=== PATIENT | female | born 1985 | race Caucasian/White ===

== ENCOUNTER 2018-08-12 12:39 | Emergency (ER) | payer MEDICAID, OTHER ==
[~2018-08-12] VITALS: Ht 160 cm; Wt 108.9 kg
--- OUTSIDE RECORDS SUMMARY | 2018-08-12 12:45 | XMS REPORT | Continuity of Care Document ---
Author Organization Unknown Address Unknown Allergies There is no data. Medications There is no data. Problems There is no data. Procedures There is no data. Results There is no data. Encounters ACCT No. Visit Date/Time Discharge Status Pt. Type Provider Facility Loc./Unit Complaint [id number] 07/20/2018 09:00:00 07/20/2018 23:59:59 [facility]
[2018-08-12 13:18] LABS: HEMATOCRIT 40 % (35-52); HEMOGLOBIN 13.3 G/DL (11.5-16.0); MEAN CORPUSCULAR HEMOGLOBIN 27 PG (25-34); MEAN CORPUSCULAR HGB CONC 33 G/DL (32-36); MEAN CORPUSCULAR VOLUME 81 FL (80-99); WHITE BLOOD COUNT 9.6 10^3/uL (4.3-11.0)
[2018-08-12 13:19] LABS: BASOPHILS # (AUTO) 0.1 10^3/uL (0.0-0.1); BASOPHILS % (AUTO) 1 % (0-10); EOSINOPHILS # (AUTO) 0.1 10^3/uL (0.0-0.3); EOSINOPHILS % (AUTO) 1 % (0-10); LYMPHOCYTES # (AUTO) 2.8 X 10^3 (1.0-4.0); LYMPHOCYTES % (AUTO) 30 % (12-44); MEAN PLATELET VOLUME 9.6 FL (7.4-10.4); MONOCYTES % (AUTO) 11 % (0-12); NEUTROPHILS # (AUTO) 5.5 X 10^3 (1.8-7.8); NEUTROPHILS % (AUTO) 57 % (42-75); PLATELET COUNT 373 10^3/uL (130-400); RED CELL DISTRIBUTION WIDTH 13.2 % (10.0-14.5)
[2018-08-12 13:35] LABS: ALANINE AMINOTRANSFERASE 9 U/L (0-55); ALBUMIN 4.2 GM/DL (3.2-4.5); ALKALINE PHOSPHATASE 97 U/L (40-136); BILIRUBIN,TOTAL 0.4 MG/DL (0.1-1.0); BUN/CREATININE RATIO 9; CALCIUM 8.5 MG/DL (8.5-10.1); CARBON DIOXIDE 22 MMOL/L (21-32); CHLORIDE 102 MMOL/L (98-107); CREATININE SERUM 0.86 MG/DL (0.60-1.30); GFR ESTIMATED > 60; GLUCOSE 110 MG/DL (70-105); LIPASE 34 U/L (8-78); POTASSIUM 3.4 MMOL/L (3.6-5.0); SODIUM 140 MMOL/L (135-145); TOTAL PROTEIN 7.2 GM/DL (6.4-8.2)
[2018-08-12] MEDS ORDERED: morphine INJ 10 MG/ML 1ML (SYR OR VIAL) IVP STA (13:49)
[2018-08-12] MEDS ORDERED: ONDANSETRON 4 MG/2 ML (SDV) Z0FRAN IVP ONE (14:00)
[2018-08-12] MEDS ORDERED: NS IV 1000 ML 1,000 ML IV SCH (14:15)
--- NOTE | 2018-08-12 14:40 | Diagnostic Imaging Report ---
PROCEDURE: CT abdomen and pelvis without contrast. TECHNIQUE: Multiple contiguous axial images were obtained through the abdomen and pelvis without the use of intravenous contrast. Auto Exposure Controls were utilized during the CT exam to meet ALARA standards for radiation dose reduction. INDICATION: Left flank pain, left groin pain as well as hematuria. COMPARISON: No prior studies are available for comparison. FINDINGS: The lung bases are clear. The liver is unremarkable. Gallbladder is surgically absent. No biliary ductal dilatation is seen. The pancreas and spleen are unremarkable. No adrenal mass is detected. Right kidney does contain a tiny nonobstructing calculus in a lower pole calyx. There are numerous tiny nonobstructing calculi in the left kidney. In addition, there is a 2-3 mm calculus in the proximal left ureter just beyond the UPJ. Minimal hydronephrosis on the left side is seen. Remainder of the ureters is unremarkable. No bladder calculi are seen. Aorta is nonaneurysmal. Small and large bowel loops are normal caliber and without evidence of obstruction. There is no ascites. The uterus and ovaries are unremarkable. IMPRESSION: Bilateral nonobstructing nephrolithiasis. In addition, there is a 2-3 mm calculus in the proximal left ureter producing minimal hydronephrosis. No other significant abnormality is seen. Dictated by: Dictated on workstation # [id number]
[2018-08-12 14:48] LABS: CLARITY,URINE CLEAR; COLOR,URINE ORANGE; GLUCOSE, URINE (UA) 1+ (NEGATIVE); KETONES,URINE TRACE (NEGATIVE); NITRITE,URINE POSITIVE (NEGATIVE); PROTEIN,URINE 2+ (NEGATIVE)
--- NOTE | 2018-08-12 14:48 | ED Abdominal Pain ---
General Chief Complaint: Abdominal/GI Problems Stated Complaint: BACK PAIN Nursing Triage Note: Brought in by EMS.Started having left sided flank pain yesterday that wrapped around into left lower abdomen. Pain is increased today, rated at 10/10 prior to 100 mcg fentanyl administration by EMS. Is currently rating pain at 2/10. Had bright red blood in urine yesterday. Also had "red swirls" of blood in vomit yesterday. Pt states has hx of bladder stones but not kidney stones and hx of stomach ulcers. Sepsis Screen: No Definite Risk Source of Information: Patient Exam Limitations: No Limitations History of Present Illness Date Seen by Provider: August 12, 2018 Time Seen by Provider: 13:30 Initial Comments Patient is a 32-year-old female who presents with left-sided flank pain concerning her earlier today. Pain was acute onset described as sharp, radiating to left pelvis. Associated with nausea and vomiting. Symptoms are similar to previous kidney stones. Patient REPORTS painless hematuria yesterday. Denies fever chills, sweats. Patient has irregular menstrual period due to control implant. No other acute symptoms or complaints. Timing/Duration: 4-6 Hours Severity/Quality: Severe, Sharp Location: Flank Radiation: LLQ Activities at Onset: None Associated Symptoms: Back Pain Allergies and Home Medications Allergies Coded Allergies: No Known Drug Allergies (Unverified , 08/12/18) Home Medications Cephalexin 500 Mg Capsule, 500 MG PO Q8H Prescribed by: GLADYS DOUGLAS on 08/12/18 1501 Hydrocodone/Acetaminophen 1 Each Tablet, 1 TAB PO Q6H PRN for PAIN-MODERATE Prescribed by: GLADYS DUOGLAS on 08/12/18 1501 Ondansetron 4 Mg Tab.rapdis, 4 MG PO Q6H Prescribed by: GLADYS DOUGLAS on 08/12/18 1501 Tamsulosin HCl 0.4 Mg Cap, 0.4 MG PO DAILY Prescribed by: GLADYS DOUGLAS on 08/12/18 1501 Patient Home Medication List Home Medication List Reviewed: Yes Review of Systems Review of Systems Constitutional: see HPI EENTM: See HPI Respiratory: See HPI Cardiovascular: See HPI Genitourinary: See HPI, Frequency, Flank Pain, Hematuria, Other Musculoskeletal: see HPI, back pain Skin: see HPI Psychiatric/Neurological: See HPI Endocrine: See HPI Hematologic/Lymphatic: See HPI Past Ubznmdr-Alpvnk-Dbzupl Hx Patient Social History Alcohol Use: Denies Use Recreational Drug Use: No Smoking Status: Never a Smoker 2nd Hand Smoke Exposure: No Recent Foreign Travel: No Contact w/Someone Who Travel: No Recent Infectious Disease Expo: No Recent Hopitalizations: No Physical Abuse: No Sexual Abuse: No Mistreated: No Fear: No Seasonal Allergies Seasonal Allergies: No Past Medical History Surgeries: Yes Gallbladder Respiratory: No Cardiac: No Neurological: No Genitourinary: Yes ("bladder stones") Gastrointestinal: Yes Ulcer Musculoskeletal: No Endocrine: Yes (PKU) HEENT: No Cancer: No Psychosocial: No Integumentary: No Physical Exam Vital Signs Vital Signs - First Documented 08/12/18 12:40 Temp 97.5 Pulse 74 Resp 22 B/P (MAP) 129/64 (85) Pulse Ox 95 Capillary Refill : Less Than 3 Seconds Height/Weight/BMI Height: 5'3.00" Weight: 240lbs. oz. [id number]; BMI Method:Stated General Appearance: no apparent distress HEENT: PERRL/EOMI, normal ENT inspection Neck: full range of motion Respiratory: lungs clear Cardiovascular: normal peripheral pulses, regular rate, rhythm Gastrointestinal: normal bowel sounds, non tender Back: CVA tenderness (L) Focused Exam Sepsis Stage: Ruled Out Progress/Results/Core Measures Results/Orders Lab Results Laboratory Tests Test 08/12/18 13:07 08/12/18 14:21 Range/Units White Blood Count 9.6 4.3-11.0 10^3/uL Red Blood Count 4.98 4.35-5.85 10^6/uL Hemoglobin 13.3 11.5-16.0 G/DL Hematocrit 40 35-52 % Mean Corpuscular Volume 81 80-99 FL Mean Corpuscular Hemoglobin 27 25-34 PG Mean Corpuscular Hemoglobin Concent 33 32-36 G/DL Red Cell Distribution Width 13.2 10.0-14.5 % Platelet Count 373 130-400 10^3/uL Mean Platelet Volume 9.6 7.4-10.4 FL Neutrophils (%) (Auto) 57 42-75 % Lymphocytes (%) (Auto) 30 12-44 % Monocytes (%) (Auto) 11 0-12 % Eosinophils (%) (Auto) 1 0-10 % Basophils (%) (Auto) 1 0-10 % Neutrophils # (Auto) 5.5 1.8-7.8 X 10^3 Lymphocytes # (Auto) 2.8 1.0-4.0 X 10^3 Monocytes # (Auto) 1.0 0.0-1.0 X 10^3 Eosinophils # (Auto) 0.1 0.0-0.3 10^3/uL Basophils # (Auto) 0.1 0.0-0.1 10^3/uL Sodium Level 140 135-145 MMOL/L Potassium Level 3.4 L 3.6-5.0 MMOL/L Chloride Level 102 98-107 MMOL/L Carbon Dioxide Level 22 21-32 MMOL/L Anion Gap 16 H 5-14 MMOL/L Blood Urea Nitrogen 8 7-18 MG/DL Creatinine 0.86 0.60-1.30 MG/DL Estimat Glomerular Filtration Rate > 60 BUN/Creatinine Ratio 9 Glucose Level 110 H 70-105 MG/DL Calcium Level 8.5 8.5-10.1 MG/DL Corrected Calcium 8.3 L 8.5-10.1 MG/DL Total Bilirubin 0.4 0.1-1.0 MG/DL Aspartate Amino Transf (AST/SGOT) 12 5-34 U/L Alanine Aminotransferase (ALT/SGPT) 9 0-55 U/L Alkaline Phosphatase 97 40-136 U/L Total Protein 7.2 6.4-8.2 GM/DL Albumin 4.2 3.2-4.5 GM/DL Lipase 34 8-78 U/L Serum Test, Qualitative NEGATIVE NEGATIVE Urine Color ORANGE Urine Clarity CLEAR Urine pH 5.0 5-9 Urine Specific [place] 1.020 1.016-1.022 Urine Protein 2+ H NEGATIVE Urine Glucose (UA) 1+ H NEGATIVE Urine Ketones TRACE H NEGATIVE Urine Nitrite POSITIVE H NEGATIVE Urine Bilirubin 2+ H NEGATIVE Urine Urobilinogen >=8.0 NORMAL MG/DL Urine Leukocyte Esterase 3+ H NEGATIVE Urine RBC (Auto) 3+ H NEGATIVE Urine RBC 50-100 H /HPF Urine WBC 25-50 H /HPF Urine Squamous Epithelial Cells 10-25 H /HPF Urine Crystals NONE /LPF Urine Bacteria FEW H /HPF Urine Casts NONE /LPF Urine Mucus NEGATIVE /LPF Urine Trichomonas /HPF Urine Culture Indicated YES My Orders Orders - GLADYS DOUGLAS DO Cbc With Automated Diff (08/12/18 12:47) Comprehensive Metabolic Panel (08/12/18 12:47) Lipase (08/12/18 12:47) Ua Culture If Indicated (08/12/18 12:47) Hcg,Qualitative Serum (08/12/18 12:47) Ondansetron Injection (Zofran Injectio (08/12/18 14:00) Morphine Injection (Morphine Injection (08/12/18 13:49) Ct Abdomen/Pelvis Wo (08/12/18 14:08) Ns Iv 1000 Ml (Sodium Chloride 0.9%) (08/12/18 14:15) Urine Culture (08/12/18 14:21) Ceftriaxone For Iv Use (Rocephin For I (08/12/18 15:00) Medications Given in ED Current Medications Medications Dose Ordered Sig/James Route Start Time Stop Time Status Last Admin Dose Admin Ondansetron HCl 4 mg ONCE ONCE IVP 08/12/18 14:00 08/12/18 14:01 DC 08/12/18 14:01 4 MG Vital Signs/I&O 08/12/18 12:40 Temp 97.5 Pulse 74 Resp 22 B/P (MAP) 129/64 (85) Pulse Ox 95 Blood Pressure Mean: 85 Departure Communication (Admissions) 2-3 mm left proximal ureteral stone with mild hydronephrosis with probable urinary tract infection. Patient is afebrile and nontoxic with normal white blood cell count. IV fluids, repeat pain medication and antibiotics given. Patient resting comfortably. Will treat supportively with PCP/urology follow-up. Return precautions reviewed. Impression Primary Impression: Acute left flank pain Additional Impressions: Kidney stone on left side Urinary tract infection Disposition: HOME, SELF-CARE Condition: Improved Departure-Patient Inst. Decision time for Depature: 14:58 Patient Instructions: Renal Colic, Urinary Tract Infections in Adults Add. Discharge Instructions: Please increase fluids and strain urine to assure passage of kidney stone. Take newly prescribed medications as directed and follow-up with your PCP in 2-3 days for repeat evaluation and consideration of urology referral. The meantime, if he developed new or worsening symptoms return to the emergency department. All discharge instructions reviewed with patient and/or family. Voiced unde rstanding. Scripts Tamsulosin HCl (Flomax) 0.4 Mg Cap 0.4 MG PO DAILY, #5 CAP Prov: GLADYS DOUGLAS DO 08/12/18 Ondansetron (Ondansetron Odt) 4 Mg Tab.rapdis 4 MG PO Q6H, #10 TAB Prov: GLADYS DOUGLAS DO 08/12/18 Hydrocodone/Acetaminophen ([place] 10-325 Tablet) 1 Each Tablet 1 TAB PO Q6H PRN for PAIN-MODERATE MDD 5 TABS for 7 Days, #20 TAB Prov: GLADYS DOUGLAS DO 08/12/18 Cephalexin (Keflex) 500 Mg Capsule 500 MG PO Q8H, #30 CAP Prov: GLADYS DOUGLAS DO 08/12/18 GLADYS DOUGLAS DO August 12, 2018 14:48
[2018-08-12 14:49] LABS: BACTERIA,URINE FEW /HPF; BILIRUBIN,URINE 2+ (NEGATIVE); LEUKOCYTE ESTERASE ,URINE 3+ (NEGATIVE); RBC,URINE 50-100 /HPF; UROBILINOGEN,URINE >=8.0 MG/DL (NORMAL); WBC,URINE 25-50 /HPF
[2018-08-12] MEDS ORDERED: cefTRIAXone FOR IV USE 1,000 MG in WATER (STERILE) FOR INJECTION 10 ML IV ONE (15:00)
[2018-08-12] MEDS ORDERED: TAMS0.4C98 PO (15:01)
[2018-08-12] MEDS ORDERED: CEPH-507 PO (15:01)
[2018-08-12] MEDS ORDERED: ONDA4TAB11 PO (15:01)
[2018-08-12] MEDS ORDERED: HYDR-4196 PO (15:01)
[2018-08-12 15:44] VITALS: BP 125/87
== END 2018-08-12 15:47 | disposition home or self-care (01) ==
LOC: ER FS 12:42
DX: N13.6 Pyonephrosis (principal)
CPT/HCPCS: 36415; 74176; 80053; 81000; 83690; 84703; 85025; 87088

== ENCOUNTER 2019-06-01 13:29 | Emergency (ER) | payer MEDICAID, OTHER ==
[~2019-06-01] VITALS: Ht 162.6 cm; Wt 108.9 kg
[~2019-06-01 13:29] MED LIST: CEPH-507 PO; HYDR-4196 PO; ONDA4TAB11 PO; TMSL.4C PO
[2019-06-01 14:30] LABS: BILIRUBIN,URINE NEGATIVE (NEGATIVE); CLARITY,URINE CLEAR; COLOR,URINE YELLOW; GLUCOSE, URINE (UA) NEGATIVE (NEGATIVE); KETONES,URINE TRACE (NEGATIVE); LEUKOCYTE ESTERASE ,URINE 1+ (NEGATIVE); NITRITE,URINE NEGATIVE (NEGATIVE); PH,URINE 6.5 (5-9); PROTEIN,URINE NEGATIVE (NEGATIVE)
[2019-06-01 14:39] LABS: BACTERIA,URINE TRACE /HPF; SQUAMOUS EPITHELIAL CELL,UR 0-2 /HPF
[2019-06-01] MEDS ORDERED: NS IV 1000 ML 1,000 ML IV SCH (15:04)
[2019-06-01] MEDS ORDERED: ONDANSETRON 4 MG/2 ML (SDV) Z0FRAN IVP ONE (15:15)
[2019-06-01 15:31] LABS: BASOPHILS % (AUTO) 0 % (0-10); EOSINOPHILS # (AUTO) 0.1 10^3/uL (0.0-0.3); EOSINOPHILS % (AUTO) 1 % (0-10); HEMATOCRIT 45 % (35-52); HEMOGLOBIN 14.9 G/DL (11.5-16.0); LYMPHOCYTES # (AUTO) 0.7 X 10^3 (1.0-4.0); LYMPHOCYTES % (AUTO) 8 % (12-44); MEAN CORPUSCULAR HEMOGLOBIN 26 PG (25-34); MEAN CORPUSCULAR HGB CONC 33 G/DL (32-36); MEAN CORPUSCULAR VOLUME 80 FL (80-99); MONOCYTES # (AUTO) 0.7 X 10^3 (0.0-1.0); MONOCYTES % (AUTO) 7 % (0-12); NEUTROPHILS # (AUTO) 7.8 X 10^3 (1.8-7.8); NEUTROPHILS % (AUTO) 84 % (42-75); PLATELET COUNT 340 10^3/uL (130-400); RED CELL DISTRIBUTION WIDTH 14.3 % (10.0-14.5); WHITE BLOOD COUNT 9.2 10^3/uL (4.3-11.0)
--- NOTE | 2019-06-01 15:35 | ED GI ---
General Chief Complaint: Abdominal/GI Problems Stated Complaint: ABD PAIN;N/D;DIZZINESS Nursing Triage Note: Pt amb to triage with c/o medial abd discomfort, nausea, diarrhea, dizziness, et chills. Pt reports onset of symptoms to be upon rise on this day. Pt reports to have experienced x5 epiodes of diarrhea throughout this day. Denies urinary symptoms. Reports hx bleeding ulcers. A&OX4. Sepsis Screen: No Definite Risk History of Present Illness Date Seen by Provider: Jun 01, 2019 Time Seen by Provider: 13:50 Initial Comments 33-year-old female presents for multiple episodes of diarrhea over the last 18 hours. She's had a history of GI ulcers in the past. She does take omeprazole daily. She has not taken anything for the diarrhea. Timing/Duration: 12-24 Hours Severity/Quality: Moderate Location: Generalized Abdomen Radiation: No Radiation Associated Symptoms: Fever/Chills, Fatigue, Nausea/Vomiting Allergies and Home Medications Allergies Coded Allergies: No Known Drug Allergies (Unverified , 08/12/18) Home Medications Cephalexin 500 Mg Capsule, 500 MG PO Q8H Prescribed by: GLADYS DOUGLAS on 08/12/18 1501 Diphenoxylate HCl/Atropine 1 Each Tablet, 1 EACH PO Q6H PRN for DIARRHEA Prescribed by: SIDNEY DOOLEY on 06/01/19 1646 Diphenoxylate HCl/Atropine 1 Each Tablet, 1 EACH PO Q6H PRN for DIARRHEA Prescribed by: SIDNEY DOOLEY on 06/01/19 1649 Hydrocodone/Acetaminophen 1 Each Tablet, 1 TAB PO Q6H PRN for PAIN-MODERATE Prescribed by: GLADYS DOUGLAS on 08/12/18 1501 Ondansetron 4 Mg Tab.rapdis, 4 MG PO Q6H Prescribed by: GLADYS DOUGLAS on 08/12/18 1501 Ondansetron 4 Mg Tab.rapdis, 4 MG PO Q6H PRN for NAUSEA/VOMITING-1ST LINE Prescribed by: SIDNEY DOOLEY on 06/01/19 1645 Tamsulosin HCl 0.4 Mg Cap, 0.4 MG PO DAILY Prescribed by: GLADYS DOUGLAS on 08/12/18 1501 Patient Home Medication List Home Medication List Reviewed: Yes Review of Systems Review of Systems Constitutional: see HPI, chills, malaise, weakness Respiratory: No Symptoms Reported, See HPI; Denies Cough Gastrointestinal: See HPI, Abdominal Pain, Diarrhea, Nausea, Poor Appetite, Poor Fluid Intake; Denies Vomiting All Other Systems Reviewed Negative Unless Noted: Yes Past Pufmchb-Mvifrq-Yjmrvh Hx Past Med/Social Hx: Reviewed Nursing Past Med/Soc Hx Patient Social History Alcohol Use: Denies Use Recreational Drug Use: No Smoking Status: Never a Smoker 2nd Hand Smoke Exposure: No Recent Foreign Travel: No Contact w/Someone Who Travel: No Recent Infectious Disease Expo: No Recent Hopitalizations: No Seasonal Allergies Seasonal Allergies: No Past Medical History Surgeries: Yes Gallbladder Respiratory: No Cardiac: No Neurological: No Genitourinary: Yes ("bladder stones") Gastrointestinal: Yes Ulcer Musculoskeletal: No Endocrine: Yes (PKU) HEENT: No Cancer: No Psychosocial: No Integumentary: No Physical Exam Vital Signs Vital Signs - First Documented 06/01/19 13:40 Temp 36.8 Pulse 93 Resp 18 B/P (MAP) 137/87 (104) Pulse Ox 100 O2 Delivery Room Air Capillary Refill : Less Than 3 Seconds Height/Weight/BMI Height: 5'3.00" Weight: 240lbs. oz. [id number]; 41.00 BMI Method:Stated General Appearance: WD/WN, no apparent distress HEENT: PERRL/EOMI, normal ENT inspection, TMs normal, pharynx normal, other (oral mucosa pink and moist) Neck: non-tender, full range of motion, supple, normal inspection Respiratory: chest non-tender, lungs clear, normal breath sounds Cardiovascular: normal peripheral pulses, regular rate, rhythm Gastrointestinal: normal bowel sounds, non tender, soft Extremities: normal range of motion, non-tender, normal inspection, normal capillary refill Neurologic/Psychiatric: no motor/sensory deficits, alert, normal mood/affect, oriented x 3 Skin: normal color, warm/dry Progress/Results/Core Measures Results/Orders Lab Results Laboratory Tests Test 06/01/19 14:20 06/01/19 15:10 Range/Units Urine Color YELLOW Urine Clarity CLEAR Urine pH 6.5 5-9 Urine Specific [place] 1.020 1.016-1.022 Urine Protein NEGATIVE NEGATIVE Urine Glucose (UA) NEGATIVE NEGATIVE Urine Ketones TRACE H NEGATIVE Urine Nitrite NEGATIVE NEGATIVE Urine Bilirubin NEGATIVE NEGATIVE Urine Urobilinogen 1.0 < = 1.0 MG/DL Urine Leukocyte Esterase 1+ H NEGATIVE Urine RBC (Auto) 3+ H NEGATIVE Urine RBC 2-5 H /HPF Urine WBC 2-5 /HPF Urine Squamous Epithelial Cells 0-2 /HPF Urine Crystals NONE /LPF Urine Bacteria TRACE /HPF Urine Casts NONE /LPF Urine Mucus NEGATIVE /LPF Urine Culture Indicated NO White Blood Count 9.2 4.3-11.0 10^3/uL Red Blood Count 5.64 4.35-5.85 10^6/uL Hemoglobin 14.9 11.5-16.0 G/DL Hematocrit 45 35-52 % Mean Corpuscular Volume 80 80-99 FL Mean Corpuscular Hemoglobin 26 25-34 PG Mean Corpuscular Hemoglobin Concent 33 32-36 G/DL Red Cell Distribution Width 14.3 10.0-14.5 % Platelet Count 340 130-400 10^3/uL Mean Platelet Volume 10.0 7.4-10.4 FL Neutrophils (%) (Auto) 84 H 42-75 % Lymphocytes (%) (Auto) 8 L 12-44 % Monocytes (%) (Auto) 7 0-12 % Eosinophils (%) (Auto) 1 0-10 % Basophils (%) (Auto) 0 0-10 % Neutrophils # (Auto) 7.8 1.8-7.8 X 10^3 Lymphocytes # (Auto) 0.7 L 1.0-4.0 X 10^3 Monocytes # (Auto) 0.7 0.0-1.0 X 10^3 Eosinophils # (Auto) 0.1 0.0-0.3 10^3/uL Basophils # (Auto) 0.0 0.0-0.1 10^3/uL Neutrophils % (Manual) 83 % Lymphocytes % (Manual) 10 % Monocytes % (Manual) 2 % Band Neutrophils 2 % Tear Drop Cells SLIGHT Blood Morphology Comment NORMAL Sodium Level 140 135-145 MMOL/L Potassium Level 3.6 3.6-5.0 MMOL/L Chloride Level 105 98-107 MMOL/L Carbon Dioxide Level 26 21-32 MMOL/L Anion Gap 9 5-14 MMOL/L Blood Urea Nitrogen 9 7-18 MG/DL Creatinine 0.92 0.60-1.30 MG/DL Estimat Glomerular Filtration Rate > 60 BUN/Creatinine Ratio 10 Glucose Level 92 70-105 MG/DL Calcium Level 9.0 8.5-10.1 MG/DL Corrected Calcium 8.6 8.5-10.1 MG/DL Total Bilirubin 0.7 0.1-1.0 MG/DL Aspartate Amino Transf (AST/SGOT) 15 5-34 U/L Alanine Aminotransferase (ALT/SGPT) 13 0-55 U/L Alkaline Phosphatase 116 40-136 U/L Total Protein 7.8 6.4-8.2 GM/DL Albumin 4.5 3.2-4.5 GM/DL My Orders Orders - SIDNEY DOOLEY Urine Bedside (06/01/19 13:38) Ua Culture If Indicated (06/01/19 13:38) Cbc With Automated Diff (06/01/19 15:04) Comprehensive Metabolic Panel (06/01/19 15:04) Ed Iv/Invasive Line Start (06/01/19 15:04) Ns Iv 1000 Ml (Sodium Chloride 0.9%) (06/01/19 15:04) Ondansetron Injection (Zofran Injectio (06/01/19 15:15) Manual Differential (06/01/19 15:10) Pantoprazole Injection (Protonix Injecti (06/01/19 16:00) Diphenoxylate/Atropine Tablet (Lomotil T (06/01/19 16:25) Medications Given in ED Current Medications Medications Dose Ordered Sig/James Route Start Time Stop Time Status Last Admin Dose Admin Ondansetron HCl 8 mg ONCE ONCE IVP 06/01/19 15:15 06/01/19 15:16 DC 06/01/19 15:24 8 MG Pantoprazole 40 mg ONCE ONCE IV 06/01/19 16:00 06/01/19 16:01 DC 06/01/19 16:07 40 MG Vital Signs/I&O 06/01/19 06/01/19 13:40 17:09 Temp 36.8 Pulse 93 72 Resp 18 18 B/P (MAP) 137/87 (104) 122/68 (104) Pulse Ox 100 100 O2 Delivery Room Air Blood Pressure Mean: 104 Progress Progress Note : Time: 13:50 Progress Note Patient seen and evaluated, will obtain labs and reevaluate. Zofran 8 mg IV for nausea. Normal saline 1 L per IV. 1445 labs essentially normal, . She has not been taking her Carafate or Prilosec, will give Protonix IV. Nausea has improved. Taking ice chips. 1530 IV infusing slowly, with slight for it to be infuse prior to disch arge.patient had another episode of diarrhea, Will give Lomotil 1600 patient reports no further diarrhea. Awaiting IV infusion. 1645 patient reports symptoms have improved. She's had no further diarrhea. IV has finished infusing. Discharge instructions and return precautions reviewed with her. Departure Impression Primary Impression: Diarrhea Qualified Codes: R19.7 - Diarrhea, unspecified Additional Impression: Abdominal pain Qualified Codes: R10.84 - Generalized abdominal pain Disposition: HOME, SELF-CARE Condition: Improved Departure-Patient Inst. Decision time for Depature: 16:45 Referrals: NO,LOCAL PHYSICIAN (PCP) [facility] Care Physician [facility] [place]ructions: Acute Abdomen (Belly Pain), Adult (DC), Diarrhea and Traveler's Diarrhea, Adult (DC) Add. Discharge Instructions: Clear liquid diet for the next 8 hours (16 oz every 2 hours, while awake) then bland diet as tolerated. Resume your omeprazole and Carafate. Use the Lomotil or diarrhea. Use the Zofran for nausea and vomiting. Follow-up with your primary care provider if symptoms are not improving or worsen. Return to the emergency department for new, urgent health care needs All discharge instructions reviewed with patient and/or family. Voiced under standing. Scripts Ondansetron (Ondansetron Odt) 4 Mg Tab.rapdis 4 MG PO Q6H PRN for NAUSEA/VOMITING-1ST LINE, #12 TAB 0 Refills Prov: SIDNEY DOOLEYP 06/01/19 Diphenoxylate HCl/Atropine (Lomotil 2.5-0.025 mg Tablet) 1 Each Tablet 1 EACH PO Q6H PRN for DIARRHEA, #10 TAB 0 Refills Prov: SIDNEY DOOLEY 06/01/19 SIDNEY DOOLEY Jun 01, 2019 15:34
[2019-06-01 15:42] LABS: ALANINE AMINOTRANSFERASE 13 U/L (0-55); ALBUMIN 4.5 GM/DL (3.2-4.5); ALKALINE PHOSPHATASE 116 U/L (40-136); BILIRUBIN,TOTAL 0.7 MG/DL (0.1-1.0); BUN/CREATININE RATIO 10; CARBON DIOXIDE 26 MMOL/L (21-32); CHLORIDE 105 MMOL/L (98-107); CREATININE SERUM 0.92 MG/DL (0.60-1.30); GFR ESTIMATED > 60; GLUCOSE 92 MG/DL (70-105); POTASSIUM 3.6 MMOL/L (3.6-5.0); SODIUM 140 MMOL/L (135-145); TOTAL PROTEIN 7.8 GM/DL (6.4-8.2)
[2019-06-01] MEDS ORDERED: PANTOPRAZOLE 40 MG (PROTONIX) VIAL IV ONE (16:00)
[2019-06-01] MEDS ORDERED: DIPHENOXYLATE/ATROPINE 2.5MG/0.025MG (LOMOTIL) TAB PO STA (16:25)
[2019-06-01 16:36] LABS: BAND NEUTROPHILS 2 %; LYMPHOCYTES % (MANUAL) 10 %; MONOCYTES % (MANUAL) 2 %; NEUTROPHILS % (MANUAL) 83 %
[2019-06-01 16:37] LABS: RBC MORPH NORMAL; TEAR DROP CELLS SLIGHT
[2019-06-01] MEDS ORDERED: ONDA4TAB11 PO (16:45)
[2019-06-01] MEDS ORDERED: DIPH1TAB PO ×2 (16:45→16:48)
[2019-06-01 17:09] VITALS: BP 122/68
[2019-06-02] MEDS ORDERED: SUCR1TAB36 PO (15:26)
[2019-06-02] MEDS ORDERED: OMEP20CA18 PO (15:26)
--- OUTSIDE RECORDS SUMMARY | 2019-06-03 12:31 | XMS REPORT ---
Author Author Mayra RODRIGUEZ Organization [facility] Address [address] [place] [address] Care Team Providers Care Transfer Station Attendant Name Role Phone JA RODRIGUEZ Unavailable PROBLEMS Type Condition ICD9-CM Code YXL00-OB Code Onset Dates Condition S tatus SNOMED Code Problem Migraine without aura and without status migrain osus, not intractable G43.009 Active 328562071 Problem PKU (phenylketonuria) E70.0 Active 4534541 Problem Peptic ulcer disease K27.9 Active 06296803 Problem Gastroesophageal reflux disease, esophagitis pre sence not specified K21.9 Active [id number] ALLERGIES No Information ENCOUNTERS Encounter Location Date Diagnosis [facility] [id number] [place] [id number] Sep, [address] [address] Aug, Encounter for Nexplanon removal Z30.46 [facility] [id number] [place] [phone] Aug, [facility] [address] [place] [address] Aug, Acute cystitis N30.00 ; Morbid obesity E 66.01 and Dysuria R30.0 [facility] [id number] [place] [id number] July, PKU (phenylketonuria) E70.[address] [address] July, Morbid obesity E66.01 ; Keloid scar of s kin L91.0 and Pain of left thumb M79.645 [facility] [address] [place] [address] Jun, Fungal infection of skin B36.9 and Morbi d obesity E66.[address] [address] Jun, [address] [address] Jun, Morbid obesity E66.01 and PKU (phenylket onuria) E70.[address] [address] May, [address] [address] [address] [facility] [id number] [address] [place] [phone] May, [address] [address] May, [address] [address] May, Morbid obesity E66.01 ; Chronic diarrhea K52.9 ; PKU (phenylketonuria) E70.0 ; Epigastric pain R10.13 and Migraine without aura and without status migrainosus, not intractable G43.009 [place] [id number] [facility] [id number] [address] [place] [phone] Apr, [place] [address] [address] [facility] [id number] [address] [place] [id number] Apr, [place] [address] [address] [facility] [id number] [address] [place] [phone] Mar, Peptic ulcer disease K27.9 ; Gastroesophageal reflux disease, esophagitis presence not specified K21.9 and BMI 40.0-44.9, adult Z68.41 IMMUNIZATIONS No Known Immunizations SOCIAL HISTORY Never Assessed REASON FOR VISIT Requests return call PLAN OF CARE VITAL SIGNS MEDICATIONS Unknown Medications RESULTS No Results PROCEDURES No Known procedures INSTRUCTIONS MEDICATIONS ADMINISTERED No Known Medications MEDICAL (GENERAL) HISTORY Type Description Date Medical History Stomach ulcers Medical History [facility] Medical History migraine headaches Surgical History cholecystectomy 2018 Surgical History EGD 2016 Hospitalization History cholecystectomy Hospitalization History stomach ulcers Hospitalization History bladder stones in
--- OUTSIDE RECORDS SUMMARY | 2019-06-03 12:32 | XMS REPORT | Continuity of Care Document ---
Author Organization Unknown Address Unknown Phone Unavailable Allergies Active Description Code Type Severity Reaction Onset Reported/Identified Relationship to Patient Clinical Status Yes No Known Drug Allergies [id number] Drug Allergy Unknown N/A 08/12/2018 Medications There is no data. Problems Date Dx Coded Attending Type Code Diagnosis Diagnosed By 08/12/2018 DOUGLAS DO, GLADYS Ot N13.6 PYONEPHROSIS 08/12/2018 DOUGLAS DO, GLADYS Ot R10.32 LEFT LOWER QUADRANT PAIN 08/16/2018 DOUGLAS DO, GLADYS Ot N13.6 PYONEPHROSIS 08/16/2018 DOUGLAS DO, GLADYS Ot R10.32 LEFT LOWER QUADRANT PAIN Procedures There is no data. Results Test Result Range Complete blood count (CBC) with automate d white blood cell (WBC) differential - 08/12/18 13:07 Blood leukocytes automated count (number/volume) 9.6 10*3/uL 4.3-11.0 Blood erythrocytes automated count (number/volume) 4.98 10*6/uL 4.35-5.85 Venous blood hemoglobin measurement (mass/volume) 13.3 g/dL 11.5-16.0 Blood hematocrit (volume fraction) 40 % 35-52 Automated erythrocyte mean corpuscular volume 81 [ foz_us] 80-99 Automated erythrocyte mean corpuscular h emoglobin (mass per erythrocyte) 27 pg 25-34 Automated erythrocyte mean corpuscular h emoglobin concentration measurement (mass/volume) 33 g/dL 32-36 Automated erythrocyte distribution width ratio 13. 2 % 10.0- 14.5 Automated blood platelet count (count/volume) 373 10*3/uL 130-400 Automated blood platelet mean volume measurement 9.6 [foz_us] 7.4-10.4 Automated blood neutrophils/100 leukocytes 57 % 42-75 Automated blood lymphocytes/100 leukocytes 30 % 12-44 Blood monocytes/100 leukocytes 11 % 0-12 Automated blood eosinophils/100 leukocytes 1 % 0-10 Automated blood basophils/100 leukocytes 1 % 0-10 Blood neutrophils automated count (number/volume) 5.5 10*3 1.8-7.8 Blood lymphocytes automated count (number/volume) 2.8 10*3 1.0-4.0 Blood monocytes automated count (number/volume) 1. 0 10*3 0.0-1.0 Automated eosinophil count 0.1 10*3/uL 0 .0-0.3 Automated blood basophil count (count/volume) 0.1 10*3/uL 0.0-0.1 Comprehensive metabolic panel - 08/12/18 13:07 Serum or plasma sodium measurement (moles/volume) 140 mmol/L 135-145 Serum or plasma potassium measurement (moles/volume) 3.4 mmol/L 3.6-5.0 Serum or plasma chloride measurement (moles/volume) 102 mmol/L 98-107 Carbon dioxide 22 mmol/L 21-32 Serum or plasma anion gap determination (moles/volume) 16 mmol/L 5-14 Serum or plasma urea nitrogen measurement (mass/volume ) 8 mg/dL 7-18 Serum or plasma creatinine measurement (mass/volume) 0.86 mg/dL 0.60-1.30 Serum or plasma urea nitrogen/creatinine mass ratio 9 NRG Serum or plasma creatinine measurement w ith calculation of estimated glomerular filtration rate > NRG Serum or plasma glucose measurement (mass/volume) 110 mg/dL 70-105 Serum or plasma calcium measurement (mass/volume) 8.5 mg/dL 8.5-10.1 Serum or plasma total bilirubin measurement (mass/volu me) 0.4 mg/dL 0.1-1.0 Serum or plasma alkaline phosphatase rosalie surement (enzymatic activity/volume) 97 U/L 40-136 Serum or plasma aspartate aminotransfera se measurement (enzymatic activity/volume) 12 U/L 5-34 Serum or plasma alanine aminotransferase measurement (enzymatic activity/volume) 9 U/L 0-55 Serum or plasma protein measurement (mass/volume) 7.2 g/dL 6.4-8.2 Serum or plasma albumin measurement (mass/volume) 4.2 g/dL 3.2-4.5 CALCIUM CORRECTED 8.3 mg/dL 8.5-10.1 Lipase - 08/12/18 13:07 Lipase 34 U/L 8-78 Serum or plasma choriogonadotropin (preg delta test) detection - 08/12/18 13:07 Serum or plasma choriogonadotropin ( test) de tection NEGATIVE NEGATIVE Complete urinalysis with reflex to cultu re - 08/12/18 14:21 Urine color determination ORANGE NRG Urine clarity determination CLEAR NR G Urine pH measurement by test strip 5.0 5-9 Specific gravity of urine by test strip 1.020 1.016-1.022 Urine protein assay by test strip, semi-quantitative 2+ NEGATIVE Urine glucose detection by automated test strip 1+ NEGATIVE Erythrocytes detection in urine sediment by light micr oscopy 3+ NEGATIVE Urine ketones detection by automated test strip TR ALVARO NEGATIVE Urine nitrite detection by test strip POSITIVE NEGATIVE Urine total bilirubin detection by test strip 2+ NEGATIVE Urine urobilinogen measurement by automated test strip (mass/volume) >= mg/dL NORMAL Urine leukocyte esterase detection by dipstick 3+ NEGATIVE Automated urine sediment erythrocyte cou nt by microscopy (number/high power field) [HPF] NRG Automated urine sediment leukocyte count by microscopy (number/high power field) [HPF] NRG Bacteria detection in urine sediment by light microsco py FEW NRG Squamous epithelial cells detection in u rine sediment by light microscopy 10-25 NRG Crystals detection in urine sediment by light microsco py NONE NRG Casts detection in urine sediment by light microscopy NONE NRG Mucus detection in urine sediment by light microscopy NEGATIVE NRG Complete urinalysis with reflex to culture YES NRG Bacterial urine culture - 08/12/18 14:21 Bacterial urine culture 3 OR MORE NRG COLONY COUNT 60,000 cfu/ml NRG FTX;REPORTABLE GRAM POSITIVE ISOLATES; SUGGESTING NRG FREE TEXT ENTRY 2 PROBABLE COLLECTION CONTAMINATIO N WITH NRG FREE TEXT ENTRY 3 SKIN SUBHASH. NO SUSCEPTIBILITY PE RFORMED. NR CULTURE, URINE - 08/20/18 00:00 CULTURE, URINE, ROUTINE SEE NOTE NR SUREPATH PAP RFX HPV mRNA E6/E7 - 11:47 CLINICAL INFORMATION: NRG LMP: NRG PREV. PAP: NRG PREV. 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: NRG GENERAL CATEGORIZATION: NRG COMMENT: NR PATHOLOGIST: NR COMMENT NR CULTURE, URINE - 05/18/19 15:00 CULTURE, URINE, ROUTINE SEE NOTE NR CBC - 05/22/19 13:22 WHITE BLOOD CELL COUNT 7.0 Thousand/uL 3 .8-10.8 RED BLOOD CELL COUNT 5.18 Million/uL 3.8 0-5.10 HEMOGLOBIN 13.9 g/dL 11.7-15.5 HEMATOCRIT 43.1 % 35.0-45.0 MCV 83.2 fL 80.0-100.0 MCH 26.8 pg 27.0-33.0 MCHC 32.3 g/dL 32.0-36.0 RDW 13.2 % 11.0-15.0 PLATELET COUNT 352 Thousand/uL 140-400 MPV 10.5 fL 7.5-12.5 ABSOLUTE NEUTROPHILS 4634 cells/uL 1500- 7800 ABSOLUTE LYMPHOCYTES 1589 cells/uL 850-3 900 ABSOLUTE MONOCYTES 567 cells/uL 200-950 ABSOLUTE EOSINOPHILS 133 cells/uL 15-500 ABSOLUTE BASOPHILS 77 cells/uL 0-200 NEUTROPHILS 66.2 % NRG LYMPHOCYTES 22.7 % NRG MONOCYTES 8.1 % NRG EOSINOPHILS 1.9 % NRG BASOPHILS 1.1 % NRG Complete urinalysis with reflex to cultu re - 06/01/19 14:20 Urine color determination YELLOW NRG Urine clarity determination CLEAR NR G Urine pH measurement by test strip 6.5 5-9 Specific gravity of urine by test strip 1.020 1.016-1.022 Urine protein assay by test strip, semi-quantitative NEGATIVE NEGATIVE Urine glucose detection by automated test strip NE GATIVE NEGATIVE Erythrocytes detection in urine sediment by light micr oscopy 3+ NEGATIVE Urine ketones detection by automated test strip TR ALVARO NEGATIVE Urine nitrite detection by test strip NEGATIVE NEGATIVE Urine total bilirubin detection by test strip NEGA TIVE NEGATIVE Urine urobilinogen measurement by automated test strip (mass/volume) 1.0 mg/dL < = 1.0 Urine leukocyte esterase detection by dipstick 1+ NEGATIVE Automated urine sediment erythrocyte cou nt by microscopy (number/high power field) [HPF] NRG Automated urine sediment leukocyte count by microscopy (number/high power field) [HPF] NRG Bacteria detection in urine sediment by light microsco py TRACE NRG Squamous epithelial cells detection in u rine sediment by light microscopy 0-2 NRG Crystals detection in urine sediment by light microsco py NONE NRG Casts detection in urine sediment by light microscopy NONE NRG Mucus detection in urine sediment by light microscopy NEGATIVE NRG Complete urinalysis with reflex to culture NO NRG Complete blood count (CBC) with automate d white blood cell (WBC) differential - 06/01/19 15:10 Blood leukocytes automated count (number/volume) 9.2 10*3/uL 4.3-11.0 Blood erythrocytes automated count (number/volume) 5.64 10*6/uL 4.35-5.85 Venous blood hemoglobin measurement (mass/volume) 14.9 g/dL 11.5-16.0 Blood hematocrit (volume fraction) 45 % 35-52 Automated erythrocyte mean corpuscular volume 80 [ foz_us] 80-99 Automated erythrocyte mean corpuscular h emoglobin (mass per erythrocyte) 26 pg 25-34 Automated erythrocyte mean corpuscular h emoglobin concentration measurement (mass/volume) 33 g/dL 32-36 Automated erythrocyte distribution width ratio 14. 3 % 10.0- 14.5 Automated blood platelet count (count/volume) 340 10*3/uL 130-400 Automated blood platelet mean volume measurement 10.0 [foz_us] 7.4-10.4 Automated blood neutrophils/100 leukocytes 84 % 42-75 Automated blood lymphocytes/100 leukocytes 8 % 12-44 Blood monocytes/100 leukocytes 7 % 0-12 Automated blood eosinophils/100 leukocytes 1 % 0-10 Automated blood basophils/100 leukocytes 0 % 0-10 Blood neutrophils automated count (number/volume) 7.8 10*3 1.8-7.8 Blood lymphocytes automated count (number/volume) 0.7 10*3 1.0-4.0 Blood monocytes automated count (number/volume) 0. 7 10*3 0.0-1.0 Automated eosinophil count 0.1 10*3/uL 0 .0-0.3 Automated blood basophil count (count/volume) 0.0 10*3/uL 0.0-0.1 Comprehensive metabolic panel - 06/01/19 15:10 Serum or plasma sodium measurement (moles/volume) 140 mmol/L 135-145 Serum or plasma potassium measurement (moles/volume) 3.6 mmol/L 3.6-5.0 Serum or plasma chloride measurement (moles/volume) 105 mmol/L 98-107 Carbon dioxide 26 mmol/L 21-32 Serum or plasma anion gap determination (moles/volume) 9 mmol/L 5-14 Serum or plasma urea nitrogen measurement (mass/volume ) 9 mg/dL 7-18 Serum or plasma creatinine measurement (mass/volume) 0.92 mg/dL 0.60-1.30 Serum or plasma urea nitrogen/creatinine mass ratio 10 NRG Serum or plasma creatinine measurement w ith calculation of estimated glomerular filtration rate > NRG Serum or plasma glucose measurement (mass/volume) 92 mg/dL 70-105 Serum or plasma calcium measurement (mass/volume) 9.0 mg/dL 8.5-10.1 Serum or plasma total bilirubin measurement (mass/volu me) 0.7 mg/dL 0.1-1.0 Serum or plasma alkaline phosphatase rosalie surement (enzymatic activity/volume) 116 U/L 40-136 Serum or plasma aspartate aminotransfera se measurement (enzymatic activity/volume) 15 U/L 5-34 Serum or plasma alanine aminotransferase measurement (enzymatic activity/volume) 13 U/L 0-55 Serum or plasma protein measurement (mass/volume) 7.8 g/dL 6.4-8.2 Serum or plasma albumin measurement (mass/volume) 4.5 g/dL 3.2-4.5 CALCIUM CORRECTED 8.6 mg/dL 8.5-10.1 Manual absolute plasma cell count - 05/20 05/11 15:10 Blood monocytes/100 leukocytes 2 % NRG Manual blood segmented neutrophils/100 leukocytes 83 % NRG Blood band neutrophils/100 leukocytes 2 % NRG Manual blood lymphocytes/100 leukocytes 10 % NRG Blood erythrocyte morphology finding identification NORMAL NRG Blood dacrocytes detection by light microscopy I [facility] NR Complete blood count (CBC) with automate d white blood cell (WBC) differential - 06/02/19 14:40 Blood leukocytes automated count (number/volume) 5.9 10*3/uL 4.3-11.0 Blood erythrocytes automated count (number/volume) 5.56 10*6/uL 4.35-5.85 Venous blood hemoglobin measurement (mass/volume) 14.7 g/dL 11.5-16.0 Blood hematocrit (volume fraction) 44 % 35-52 Automated erythrocyte mean corpuscular volume 80 [ foz_us] 80-99 Automated erythrocyte mean corpuscular h emoglobin (mass per erythrocyte) 26 pg 25-34 Automated erythrocyte mean corpuscular h emoglobin concentration measurement (mass/volume) 33 g/dL 32-36 Automated erythrocyte distribution width ratio 14. 3 % 10.0- 14.5 Automated blood platelet count (count/volume) 302 10*3/uL 130-400 Automated blood platelet mean volume measurement 9.9 [foz_us] 7.4-10.4 Automated blood neutrophils/100 leukocytes 72 % 42-75 Automated blood lymphocytes/100 leukocytes 16 % 12-44 Blood monocytes/100 leukocytes 11 % 0-12 Automated blood eosinophils/100 leukocytes 0 % 0-10 Automated blood basophils/100 leukocytes 1 % 0-10 Blood neutrophils automated count (number/volume) 4.3 10*3 1.8-7.8 Blood lymphocytes automated count (number/volume) 0.9 10*3 1.0-4.0 Blood monocytes automated count (number/volume) 0. 7 10*3 0.0-1.0 Automated eosinophil count 0.0 10*3/uL 0 .0-0.3 Automated blood basophil count (count/volume) 0.0 10*3/uL 0.0-0.1 Serum or plasma choriogonadotropin (preg delta test) detection - 06/02/19 14:40 Serum or plasma choriogonadotropin ( test) de tection NEGATIVE NEGATIVE Comprehensive metabolic panel - 06/02/19 14:40 Serum or plasma sodium measurement (moles/volume) 139 mmol/L 135-145 Serum or plasma potassium measurement (moles/volume) 3.5 mmol/L 3.6-5.0 Serum or plasma chloride measurement (moles/volume) 105 mmol/L 98-107 Carbon dioxide 20 mmol/L 21-32 Serum or plasma anion gap determination (moles/volume) 14 mmol/L 5-14 Serum or plasma urea nitrogen measurement (mass/volume ) 6 mg/dL 7-18 Serum or plasma creatinine measurement (mass/volume) 0.94 mg/dL 0.60-1.30 Serum or plasma urea nitrogen/creatinine mass ratio 6 NRG Serum or plasma creatinine measurement w ith calculation of estimated glomerular filtration rate > NRG Serum or plasma glucose measurement (mass/volume) 95 mg/dL 70-105 Serum or plasma calcium measurement (mass/volume) 9.0 mg/dL 8.5-10.1 Serum or plasma total bilirubin measurement (mass/volu me) 0.7 mg/dL 0.1-1.0 Serum or plasma alkaline phosphatase rosalie surement (enzymatic activity/volume) 115 U/L 40-136 Serum or plasma aspartate aminotransfera se measurement (enzymatic activity/volume) 16 U/L 5-34 Serum or plasma alanine aminotransferase measurement (enzymatic activity/volume) 12 U/L 0-55 Serum or plasma protein measurement (mass/volume) 7.7 g/dL 6.4-8.2 Serum or plasma albumin measurement (mass/volume) 4.4 g/dL 3.2-4.5 CALCIUM CORRECTED 8.7 mg/dL 8.5-10.1 Lipase - 06/02/19 14:40 Lipase 32 U/L 8-78 Influenza virus A and B antigen detectio n - 06/02/19 14:44 FLU RESULT NEGATIVE FOR INFLUENZA A AND B ANTIGENS BY IA [facility] Urine drug screening test - 06/02/19 15: 30 Urine phencyclidine detection by screening method NEGATIVE NEGATIVE Urine benzodiazepines detection by screening method NEGATIVE NEGATIVE Urine cocaine detection NEGATIVE NEGATI VE Urine amphetamines detection by screening method N EGATIVE NEGATIVE Urine methamphetamine detection by screening method NEGATIVE NEGATIVE Urine cannabinoids detection by screening method N EGATIVE NEGATIVE Urine opiates detection by screening method NEGATI VE NEGATIVE Urine barbiturates detection NEGATIVE N EGATIVE Screening urine tricyclic antidepressants detection NEGATIVE NEGATIVE Urine methadone detection by screening method NEGA TIVE NEGATIVE Urine oxycodone detection NEGATIVE NEGA TIVE Urine propoxyphene detection NEGATIVE N EGATIVE Encounters ACCT No. Visit Date/Time Discharge Status Pt. Type Provider Facility Loc./Unit Complaint [id number] 02/02/2019 08:20:00 02/02/2019 23:59: 59 [facility] Outpatient [facility] [id number] 05/22/2019 11:00:00 Document Registration [id number] 05/18/2019 14:15:00 Document Registration [id number] 04/13/2019 15:45:00 Document Registration [id number] 08/20/2018 09:40:00 Document Registration [id number] 06/01/2019 13:31:00 020 17:09:00 DIS Emergency SIDNEY DOOLEY Via [facility] ABD PAIN;N/D;DIZZINESS [id number] 08/12/2018 12:42:00 019 15:47:00 DIS Emergency GLADYS DOUGLAS DO Via [facility] FS BACK PAIN [id number] 06/02/2019 14:28:[address] Emergency CLINTON DONALD APRN [facility] BODY ACHES;SOA;CHEST PAIN
== END 2019-06-01 17:09 | disposition home or self-care (01) ==
LOC: EDUNIT# 13:29 → ER 13:31
DX: R19.7 Diarrhea, unspecified (principal); R10.84 Generalized abdominal pain
CPT/HCPCS: 36415; 80053; 81000; 84703; 85007; 85027

== ENCOUNTER 2019-06-02 14:27 | Emergency (ER) | payer OTHER ==
[~2019-06-02] VITALS: Ht 160 cm; Wt 108.0 kg
[~2019-06-02 14:27] MED LIST changes: +DIPH1TAB PO
--- NOTE | 2019-06-02 14:37 | ED Chest Pain ---
General Chief Complaint: General Problems/Pain Stated Complaint: BODY ACHES;SOA;CHEST PAIN Source: patient Exam Limitations: no limitations History of Present Illness Date Seen by Provider: Jun 02, 2019 Time Seen by Provider: 14:36 Initial Comments To ER with diffuse body aches, shortness of breath and ventral chest pain from the epigastric region to the mid aspect of the upper chest. Pain is worsened by movement, standing upright and breathing. She was seen here last night for persistent vomiting. She denies any hematemesis. She takes omeprazole and sucralfate for peptic ulcers diagnosed by endoscopy most recently in 2011. Timing/Duration: changing over time Severity/Quality: moderate Location: central Radiation: no radiation Prior CP/Workup: no prior chest pain ASA po RFP WRITER: No NTG SL RFP WRITER: No Associated Symptoms: shortness of breath Allergies and Home Medications Allergies Coded Allergies: No Known Drug Allergies (Unverified , 08/12/18) Home Medications Cephalexin 500 Mg Capsule, 500 MG PO Q8H Prescribed by: GLADYS DOUGLAS on 08/12/18 1501 Diphenoxylate HCl/Atropine 1 Each Tablet, 1 EACH PO Q6H PRN for DIARRHEA Prescribed by: SIDNEY DOOLEY on 06/01/19 1646 Hydrocodone/Acetaminophen 1 Each Tablet, 1 TAB PO Q6H PRN for PAIN-MODERATE Prescribed by: GLADYS DOUGLAS on 08/12/18 1501 Omeprazole 20 Mg Capsule.dr, 20 MG PO DAILY, (Reported) Ondansetron 4 Mg Tab.rapdis, 4 MG PO Q6H Prescribed by: GLADYS DOUGLAS on 08/12/18 1501 Ondansetron 4 Mg Tab.rapdis, 4 MG PO Q6H PRN for NAUSEA/VOMITING-1ST LINE Prescribed by: SIDNEY DOOLEY on 06/01/19 1645 Sucralfate 1 Gm Tablet, 1 GM PO AC, (Reported) Tamsulosin HCl 0.4 Mg Cap, 0.4 MG PO DAILY Prescribed by: GLADYS DOUGLAS on 08/12/18 1501 Patient Home Medication List Home Medication List Reviewed: Yes Review of Systems Review of Systems Constitutional: see HPI; No chills EENTM: No Symptoms Reported Respiratory: See HPI; Denies Cough; Shortness of Air Cardiovascular: See HPI, Chest Pain Gastrointestinal: No Symptoms Reported Genitourinary: No Symptoms Reported Musculoskeletal: no symptoms reported Skin: no symptoms reported Psychiatric/Neurological: No Symptoms Reported Endocrine: No Symptoms Reported Past Laecdvs-Pbjgft-Ndbxsj Hx Patient Social History 2nd Hand Smoke Exposure: No Recent Foreign Travel: No Contact w/Someone Who Travel: No Recent Hopitalizations: No Seasonal Allergies Seasonal Allergies: No Past Medical History Surgeries: Yes Gallbladder Respiratory: No Cardiac: No Neurological: No Genitourinary: Yes ("bladder stones") Gastrointestinal: Yes Ulcer Musculoskeletal: No Endocrine: Yes (PKU) HEENT: No Cancer: No Psychosocial: No Integumentary: No Physical Exam Vital Signs Vital Signs - First Documented 06/02/19 14:27 Temp 36.0 Pulse 103 Resp 22 B/P (MAP) 178/125 (142) Pulse Ox 100 O2 Delivery Room Air Capillary Refill : Height, Weight, BMI Height: 5'3.00" Weight: 240lbs. oz. 108.804325te; 41.00 BMI Method:Stated General Appearance: No Apparent Distress, Anxious HEENT: PERRL/EOMI, TMs Normal Neck: Full Range of Motion, Normal Inspection Respiratory: Normal Breath Sounds, No Accessory Muscle Use, No Respiratory Distress Cardiovascular: Normal Peripheral Pulses, Tachycardia Gastrointestinal: Non Tender, Soft Extremity: Normal Capillary Refill, Normal Inspection Neurologic/Psychiatric: Alert, Oriented x3 Skin: Normal Color, Warm/Dry Progress/Results/Core Measures Results/Orders Lab Results Laboratory Tests Test 06/02/19 14:40 06/02/19 15:30 Range/Units White Blood Count 5.9 4.3-11.0 10^3/uL Red Blood Count 5.56 4.35-5.85 10^6/uL Hemoglobin 14.7 11.5-16.0 G/DL Hematocrit 44 35-52 % Mean Corpuscular Volume 80 80-99 FL Mean Corpuscular Hemoglobin 26 25-34 PG Mean Corpuscular Hemoglobin Concent 33 32-36 G/DL Red Cell Distribution Width 14.3 10.0-14.5 % Platelet Count 302 130-400 10^3/uL Mean Platelet Volume 9.9 7.4-10.4 FL Neutrophils (%) (Auto) 72 42-75 % Lymphocytes (%) (Auto) 16 12-44 % Monocytes (%) (Auto) 11 0-12 % Eosinophils (%) (Auto) 0 0-10 % Basophils (%) (Auto) 1 0-10 % Neutrophils # (Auto) 4.3 1.8-7.8 X 10^3 Lymphocytes # (Auto) 0.9 L 1.0-4.0 X 10^3 Monocytes # (Auto) 0.7 0.0-1.0 X 10^3 Eosinophils # (Auto) 0.0 0.0-0.3 10^3/uL Basophils # (Auto) 0.0 0.0-0.1 10^3/uL Sodium Level 139 135-145 MMOL/L Potassium Level 3.5 L 3.6-5.0 MMOL/L Chloride Level 105 98-107 MMOL/L Carbon Dioxide Level 20 L 21-32 MMOL/L Anion Gap 14 5-14 MMOL/L Blood Urea Nitrogen 6 L 7-18 MG/DL Creatinine 0.94 0.60-1.30 MG/DL Estimat Glomerular Filtration Rate > 60 BUN/Creatinine Ratio 6 Glucose Level 95 70-105 MG/DL Calcium Level 9.0 8.5-10.1 MG/DL Corrected Calcium 8.7 8.5-10.1 MG/DL Total Bilirubin 0.7 0.1-1.0 MG/DL Aspartate Amino Transf (AST/SGOT) 16 5-34 U/L Alanine Aminotransferase (ALT/SGPT) 12 0-55 U/L Alkaline Phosphatase 115 40-136 U/L Total Protein 7.7 6.4-8.2 GM/DL Albumin 4.4 3.2-4.5 GM/DL Lipase 32 8-78 U/L Serum Test, Qualitative NEGATIVE NEGATIVE Micro Results Microbiology 06/02/19 Influenza Types A,B Antigen (SOPHY) - Final, Complete My Orders Orders - [facility] [employer] [employer] Cbc With Automated Diff (06/02/19 14:34) Comprehensive Metabolic Panel (06/02/19 14:34) Lipase (06/02/19 14:34) Ed Iv/Invasive Line Start (06/02/19 14:34) Antacid Suspension (Mylanta Suspension (06/02/19 14:45) Lidocaine 2% Viscous 15 Ml (Xylocaine Vi (06/02/19 14:45) Lorazepam Injection (Ativan Injection) (06/02/19 14:45) Ct Angio Chest W (06/02/19 14:37) Drug Screen Stat (Urine) (06/02/19 14:38) Hcg,Qualitative Serum (06/02/19 14:38) Iohexol Injection (Omnipaque 350 Mg/Ml 1 (06/02/19 14:45) Received Contrast (Hold Metformin- Contr (06/02/19 14:45) Sodium Chloride Flush (Catheter Flush Sy (06/02/19 14:45) Ns (Ivpb) (Sodium Chloride 0.9% Ivpb Bag (06/02/19 14:45) Ekg Tracing (06/02/19 15:33) Ketorolac Injection (Toradol Injection) (06/02/19 15:45) Medications Given in ED Current Medications Medications Dose Ordered Sig/James Route Start Time Stop Time Status Last Admin Dose Admin Al Hydrox/Mg Hydrox/Simethicone 30 ml ONCE ONCE PO 06/02/19 14:45 06/02/19 14:46 DC 06/02/19 14:40 30 ML Iohexol 100 ml ONCE ONCE IV 06/02/19 14:45 06/02/19 14:46 DC 06/02/19 15:13 84 ML Ketorolac Tromethamine 15 mg ONCE ONCE IVP 06/02/19 15:45 06/02/19 15:46 DC 06/02/19 15:39 15 MG Lidocaine HCl 15 ml ONCE ONCE PO 06/02/19 14:45 06/02/19 14:46 DC 06/02/19 14:40 15 ML Lorazepam 0.5 mg ONCE PRN IVP 06/02/19 14:45 06/02/19 14:40 0.5 MG Sodium Chloride 10 ml NEEDED PRN IV 06/02/19 14:45 06/02/19 15:13 10 ML Sodium Chloride 100 ml ONCE ONCE IV 06/02/19 14:45 06/02/19 14:46 DC 06/02/19 15:13 80 ML Vital Signs/I&O 06/02/19 14:27 Temp 36.0 Pulse 103 Resp 22 B/P (MAP) 178/125 (142) Pulse Ox 100 O2 Delivery Room Air Progress Progress Note : Progress Note NAME: SHREYA GONZALES MED REC#: [id number] PT STATUS: REG ER : 1985 PHYSICIAN: [employer] ADMIT DATE: 06/02/19/ER Draft Date of Exam:06/02/19 CT ANGIO CHEST W PROCEDURE: CT angiography of the chest with contrast. TECHNIQUE: Multiple contiguous axial images were obtained through the chest after uneventful bolus administration of intravenous contrast. 3D reconstructed CTA MIP acquisitions were also performed. Auto Exposure Controls were utilized during the CT exam to meet ALARA standards for radiation dose reduction. INDICATION: Chest pain, cough and shortness of air. COMPARISON: No prior studies are available for comparison. FINDINGS: Evaluation of pulmonary arterial system is without thromboembolism. No definite filling defects are seen within central, lobar or segmental branches. The thoracic aorta appears to be normal caliber. No dissection is identified. There is no pericardial or pleural fluid detected. No axillary lymphadenopathy is detected. No definite mediastinal or hilar lymphadenopathy is detected. No pulmonary infiltrates, nodules or masses are seen. Upper abdomen is unremarkable. The bony structures are nonacute. IMPRESSION: 1. No evidence of pulmonary embolism or thoracic aortic dissection. No acute features identified. Dictated on workstation # [id number] Dict: 06/02/19 1518 Trans: 06/02/19 1523 [id number] Interpreted by: EMILY CRAIG MD Electronically signed by: Departure Impression Primary Impression: Chest pain Qualified Codes: R07.9 - Chest pain, unspecified Disposition: 01 HOME, SELF-CARE Condition: Stable Departure-Patient Inst. Decision time for Depature: 16:53 Referrals: [facility] (PCP) Primary Care Physician SHERMAN CHAVEZ APRN (Family) Primary Care Physician Patient Instructions: Chest Pain Add. Discharge Instructions: 1. Follow-up with your doctor next week 2. Return to ER for any concerns 3. All discharge instructions reviewed with patient and/or family. Voiced understanding. CLINTON DONALD APRN Jun 02, 2019 14:37
[2019-06-02 14:45] LABS: BASOPHILS % (AUTO) 1 % (0-10); EOSINOPHILS % (AUTO) 0 % (0-10); HEMATOCRIT 44 % (35-52); HEMOGLOBIN 14.7 G/DL (11.5-16.0); LYMPHOCYTES # (AUTO) 0.9 X 10^3 (1.0-4.0); LYMPHOCYTES % (AUTO) 16 % (12-44); MEAN CORPUSCULAR HEMOGLOBIN 26 PG (25-34); MEAN CORPUSCULAR HGB CONC 33 G/DL (32-36); MEAN CORPUSCULAR VOLUME 80 FL (80-99); MEAN PLATELET VOLUME 9.9 FL (7.4-10.4); MONOCYTES # (AUTO) 0.7 X 10^3 (0.0-1.0); MONOCYTES % (AUTO) 11 % (0-12); NEUTROPHILS # (AUTO) 4.3 X 10^3 (1.8-7.8); NEUTROPHILS % (AUTO) 72 % (42-75); PLATELET COUNT 302 10^3/uL (130-400); RED CELL DISTRIBUTION WIDTH 14.3 % (10.0-14.5); WHITE BLOOD COUNT 5.9 10^3/uL (4.3-11.0)
[2019-06-02] MEDS ORDERED: ANTACID SUSP 30 ML UDC (MYLANTA) PO ONE (14:45)
[2019-06-02] MEDS ORDERED: IOHEXOL 350 MG/ML 100 ML (OMNIPAQUE 350) VIAL IV ONE (14:45)
[2019-06-02] MEDS ORDERED: NS 100 ML (IVPB) BAG IV ONE (14:45)
[2019-06-02] MEDS ORDERED: LORazepam INJ 2 MG/ML (ATIVAN) VIAL IVP PRN (14:45)
[2019-06-02] MEDS ORDERED: LIDOCAINE 2% VISCOUS 15 ML UDC PO ONE (14:45)
[2019-06-02] MEDS ORDERED: HOLD METFORMIN - RECEIVED CONTRAST 20 ML VIAL IV SCH (14:45)
[2019-06-02] MEDS ORDERED: CATHETER FLUSH 10 ML SYR IV PRN (14:45)
[2019-06-02 14:59] LABS: ALANINE AMINOTRANSFERASE 12 U/L (0-55); ALBUMIN 4.4 GM/DL (3.2-4.5); ALKALINE PHOSPHATASE 115 U/L (40-136); BILIRUBIN,TOTAL 0.7 MG/DL (0.1-1.0); BUN/CREATININE RATIO 6; CARBON DIOXIDE 20 MMOL/L (21-32); CHLORIDE 105 MMOL/L (98-107); CREATININE SERUM 0.94 MG/DL (0.60-1.30); GFR ESTIMATED > 60; GLUCOSE 95 MG/DL (70-105); LIPASE 32 U/L (8-78); POTASSIUM 3.5 MMOL/L (3.6-5.0); SODIUM 139 MMOL/L (135-145); TOTAL PROTEIN 7.7 GM/DL (6.4-8.2)
[2019-06-02] MEDS ORDERED: OMEP20CA18 PO (15:26)
[2019-06-02] MEDS ORDERED: SUCR1TAB36 PO (15:26)
--- NOTE | 2019-06-02 15:29 | Diagnostic Imaging Report ---
PROCEDURE: CT angiography of the chest with contrast. TECHNIQUE: Multiple contiguous axial images were obtained through the chest after uneventful bolus administration of intravenous contrast. 3D reconstructed CTA MIP acquisitions were also performed. Auto Exposure Controls were utilized during the CT exam to meet ALARA standards for radiation dose reduction. INDICATION: Chest pain, cough and shortness of air. COMPARISON: No prior studies are available for comparison. FINDINGS: Evaluation of pulmonary arterial system is without thromboembolism. No definite filling defects are seen within central, lobar or segmental branches. The thoracic aorta appears to be normal caliber. No dissection is identified. There is no pericardial or pleural fluid detected. No axillary lymphadenopathy is detected. No definite mediastinal or hilar lymphadenopathy is detected. No pulmonary infiltrates, nodules or masses are seen. Upper abdomen is unremarkable. The bony structures are nonacute. IMPRESSION: 1. No evidence of pulmonary embolism or thoracic aortic dissection. No acute features identified. Dictated by: Dictated on workstation # [id number]
[2019-06-02] MEDS ORDERED: KETOROLAC 30 MG/ML VIAL IVP ONE (15:45)
[2019-06-02 15:59] LABS: AMPHETAMINE SCREEN, URINE NEGATIVE (NEGATIVE); BARBITURATE SCREEN URINE NEGATIVE (NEGATIVE); BENZODIAZEPINES SCREEN URINE NEGATIVE (NEGATIVE); CANNABINOID SCREEN, URINE NEGATIVE (NEGATIVE); COCAINE SCREEN URINE NEGATIVE (NEGATIVE); METHADONE STAT NEGATIVE (NEGATIVE); METHAMPHETAMINE SCREEN URINE S NEGATIVE (NEGATIVE); OPIATE SCREEN URINE NEGATIVE (NEGATIVE); OXYCODONE STAT NEGATIVE (NEGATIVE); PROPOXYPHENE STAT NEGATIVE (NEGATIVE); TRICYCLIC ANTIDEPRESSANTS SCRE NEGATIVE (NEGATIVE)
--- NOTE | 2019-06-02 16:48 | NUR ---
Patient awake and alert. Patient states her pain is better to her chest. She denies any needs at this time.
[2019-06-02 17:30] VITALS: BP 130/92
--- OUTSIDE RECORDS SUMMARY | 2019-06-04 10:05 | XMS REPORT | Continuity of Care Document ---
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 Type Provider Facility Loc./Unit Complaint [id number] 02/02/2019 08:20:00 02/02/2019 23:59: 59 [facility] Outpatient [facility] [id number] 05/22/2019 11:00:00 Document Registration [id number] 05/18/2019 14:15:00 Document Registration [id number] 04/13/2019 15:45:00 Document Registration [id number] 08/20/2018 09:40:00 Document Registration [id number] 06/01/2019 13:31:00 020 17:09:00 DIS Emergency SIDNEY DOOLEY [facility] [address] [facility] ABD PAIN;N/D;DIZZINESS [id number] 08/12/2018 12:42:00 019 15:47:00 DIS Emergency GLADYS DOUGLAS DO [facility] [address] [facility] FS BACK PAIN [id number] 06/02/2019 14:28:[address] Emergency CLINTON DONALD APRN [facility] [address] [facility] BODY ACHES;SOA;CHEST PAIN
== END 2019-06-02 17:32 | disposition home or self-care (01) ==
LOC: EDUNIT# 14:27 → ER 14:28
DX: R07.89 Other chest pain (principal)
CPT/HCPCS: 36415; 71275; 80053; 80306; 83690; 84703; 85025; 87804; 93005

== ENCOUNTER 2019-11-14 16:04 | Emergency (ER) | payer OTHER ==
[~2019-11-14] VITALS: Ht 157.5 cm; Wt 113.3 kg
[~2019-11-14 16:04] MED LIST changes: +OMEP20CA18 PO; +SUCR1TAB36 PO
[2019-11-14 17:26] LABS: BILIRUBIN,URINE NEGATIVE (NEGATIVE); CLARITY,URINE SL CLOUDY; COLOR,URINE YELLOW; GLUCOSE, URINE (UA) NEGATIVE (NEGATIVE); KETONES,URINE NEGATIVE (NEGATIVE); LEUKOCYTE ESTERASE ,URINE NEGATIVE (NEGATIVE); NITRITE,URINE NEGATIVE (NEGATIVE); PROTEIN,URINE NEGATIVE (NEGATIVE)
[2019-11-14 17:35] LABS: BACTERIA,URINE TRACE /HPF; RBC,URINE RARE /HPF
[2019-11-14 17:57] LABS: BASOPHILS # (AUTO) 0.1 10^3/uL (0.0-0.1); BASOPHILS % (AUTO) 1 % (0-10); EOSINOPHILS # (AUTO) 0.2 10^3/uL (0.0-0.3); EOSINOPHILS % (AUTO) 3 % (0-10); HEMATOCRIT 41 % (35-52); HEMOGLOBIN 13.9 G/DL (11.5-16.0); LYMPHOCYTES % (AUTO) 25 % (12-44); MEAN CORPUSCULAR HEMOGLOBIN 27 PG (25-34); MEAN CORPUSCULAR HGB CONC 34 G/DL (32-36); MEAN CORPUSCULAR VOLUME 80 FL (80-99); MEAN PLATELET VOLUME 9.8 FL (7.4-10.4); MONOCYTES # (AUTO) 0.6 X 10^3 (0.0-1.0); MONOCYTES % (AUTO) 7 % (0-12); NEUTROPHILS # (AUTO) 5.1 X 10^3 (1.8-7.8); NEUTROPHILS % (AUTO) 65 % (42-75); PLATELET COUNT 363 10^3/uL (130-400); RED CELL DISTRIBUTION WIDTH 13.7 % (10.0-14.5); WHITE BLOOD COUNT 7.9 10^3/uL (4.3-11.0)
[2019-11-14 18:21] LABS: ALANINE AMINOTRANSFERASE 13 U/L (0-55); ALBUMIN 4.3 GM/DL (3.2-4.5); ALKALINE PHOSPHATASE 91 U/L (40-136); AMYLASE 74 U/L (25-125); BILIRUBIN,TOTAL 0.4 MG/DL (0.1-1.0); BUN/CREATININE RATIO 10; CALCIUM 9.4 MG/DL (8.5-10.1); CARBON DIOXIDE 28 MMOL/L (21-32); CHLORIDE 105 MMOL/L (98-107); GFR ESTIMATED > 60; GLUCOSE 86 MG/DL (70-105); LIPASE 30 U/L (8-78); POTASSIUM 3.9 MMOL/L (3.6-5.0); SODIUM 139 MMOL/L (135-145); TOTAL PROTEIN 7.6 GM/DL (6.4-8.2)
--- NOTE | 2019-11-14 18:48 | Diagnostic Imaging Report ---
Clinical Indication: Patient reports left lower abdominal pain that radiates to flank which got worse after using the restroom. Pain has been present for 2 weeks and has gotten worse in the last 2 days. Exam: KUB x-ray. Comparison: None. Findings: Bowel gas obscures renal shadow regions and portions of the mid and proximal ureters. There is a punctate area of increased density measuring grossly 2 mm in the left pelvis region. Unknown if this represents a phlebolith versus stone in the distal left ureter. There is a nonobstructed bowel gas pattern. There is no evidence of abdominal free air. Surgical clips are seen overlying the right upper quadrant which could be related to cholecystectomy changes. The visualized bones and extra abdominal soft tissues are unremarkable. Impression: 1: There is a grossly 2 mm focal area of calcification overlying the left pelvis region which may represent a phlebolith or a stone in the left ureter. CT scan would better evaluate. Dictated by: Dictated on workstation # [id number]
[2019-11-14] MEDS ORDERED: fentaNYL INJECTION 100 MCG/2 ML AMP IVP ONE (19:00)
--- NOTE | 2019-11-14 19:00 | Diagnostic Imaging Report ---
Clinical Indication: Patient with left lower abdominal pain that radiates to flank which is worse after using the restroom. Pain has been present for 2 weeks but has gotten worse over the last 2 days. Exam: CT exam of the abdomen and pelvis is performed without IV or oral contrast using stone protocol. Coronal and sagittal reformatted images were created. Auto Exposure Controls were utilized during the CT exam to meet ALARA standards for radiation dose reduction. Comparisons: CT scan of the abdomen and pelvis without contrast dated 08/02/2018. KUB x-ray dated 11/14/2019. Findings: Visualized lung bases: Unremarkable. Liver: Unremarkable as visualized. Gallbladder: Unremarkable. Pancreas: Unremarkable as visualized. Spleen: Unremarkable as visualized. Adrenal glands: Unremarkable. Kidneys/ ureters: There are multiple bilateral nonobstructive renal stones with more seen on the left. The largest stone measures 3 mm in the upper pole left kidney. There are no stones seen in the ureters. The calcification seen in the left pelvis on the prior x-ray correlates to a small phlebolith which was also noted on the prior CT scan. There is no perinephric or periureteral fat stranding. Aorta: Unremarkable as visualized. Intraabdominal/ retroperitoneal contents: Unremarkable. Intestines: Unremarkable as visualized. Appendix: Appendix is not definitively delineated, but there is no inflammation in the pericecal region. There is no enlarged tubular structure, fat stranding or fluid collection seen.. Bladder: Unremarkable as visualized. The bladder is predominantly decompressed with no stones in the bladder seen. Pelvic organs: Unremarkable as visualized. Extra abdominal/ pelvis regions: Unremarkable. Abdominal wall: Unremarkable. Bones: Unremarkable. Impression: 1: There is nonobstructive bilateral nephrolithiasis. There is no stone seen in the ureters. The previously seen 2 mm punctate calcification in the left pelvis on the comparison x-ray represents a stable phlebolith seen on comparison CT scan. 2: The remainder of the exam shows no acute finding. Dictated by: Dictated on workstation # [id number]
[2019-11-14] MEDS ORDERED: SULF1TAB35 PO (19:29)
--- NOTE | 2019-11-14 19:29 | ED GI ---
General Chief Complaint: Abdominal/GI Problems Stated Complaint: LOWER LEFT ABD PAIN;PAIN WITH URINATION Nursing Triage Note: PTS REPORTS LEFT LOWER ABDOMINAL PAIN THAT RADIATES TO FLANK, GOT WORSE AFTER USING THE RESTROOM. PAIN HAS HAD PAIN FOR 2 WEEKS, GOTTEN WORSE THE LAST TWO DAYS. PT REPORTS BEING SENT OVER FROM URGENT CARE. Sepsis Screen: No Definite Risk Source of Information: Patient Exam Limitations: No Limitations History of Present Illness Date Seen by Provider: Nov 14, 2019 Time Seen by Provider: 17:40 Allergies and Home Medications Allergies Coded Allergies: No Known Drug Allergies (Unverified , 08/12/18) Home Medications Cephalexin 500 Mg Capsule, 500 MG PO Q8H Prescribed by: GLADYS DOUGLAS on 08/12/18 1501 Diphenoxylate HCl/Atropine 1 Each Tablet, 1 EACH PO Q6H PRN for DIARRHEA Prescribed by: SIDNEY DOOLEY on 06/01/19 1646 Hydrocodone/Acetaminophen 1 Each Tablet, 1 TAB PO Q6H PRN for PAIN-MODERATE Prescribed by: GLADYS DOUGLAS on 08/12/18 1501 Omeprazole 20 Mg Capsule.dr, 20 MG PO DAILY, (Reported) Ondansetron 4 Mg Tab.rapdis, 4 MG PO Q6H Prescribed by: GLADYS DOUGLAS on 08/12/18 1501 Ondansetron 4 Mg Tab.rapdis, 4 MG PO Q6H PRN for NAUSEA/VOMITING-1ST LINE Prescribed by: SIDNEY DOOLEY on 06/01/19 1645 Sucralfate 1 Gm Tablet, 1 GM PO AC, (Reported) Tamsulosin HCl 0.4 Mg Cap, 0.4 MG PO DAILY Prescribed by: GLADYS DOUGLAS on 08/12/18 1501 Past Qqrqgwn-Wivvsd-Sfxdim Hx Patient Social History Alcohol Use: Denies Use Recreational Drug Use: No Smoking Status: Never a Smoker 2nd Hand Smoke Exposure: No Recent Foreign Travel: No Contact w/Someone Who Travel: No Recent Infectious Disease Expo: No Recent Hopitalizations: No Physical Abuse: No Sexual Abuse: No Seasonal Allergies Seasonal Allergies: No Past Medical History Surgeries: Yes Gallbladder Respiratory: No Cardiac: No Neurological: No Genitourinary: Yes ("bladder stones") Gastrointestinal: Yes Ulcer Musculoskeletal: No Endocrine: Yes (PKU) HEENT: No Cancer: No Psychosocial: No Integumentary: No Physical Exam Vital Signs Vital Signs - First Documented 11/14/19 17:18 Temp 36.0 Pulse 83 Resp 16 B/P (MAP) 144/117 (126) Pulse Ox 100 Capillary Refill : Less Than 3 Seconds Height/Weight/BMI Height: 5'3.00" Weight: 240lbs. oz. 108.005509zj; 45.00 BMI Method:Stated Progress/Results/Core Measures Results/Orders Lab Results Laboratory Tests Test 11/14/19 17:20 11/14/19 17:51 Range/Units Urine Color YELLOW Urine Clarity SL CLOUDY Urine pH 6.0 5-9 Urine Specific [place] >=1.030 1.016-1.022 Urine Protein NEGATIVE NEGATIVE Urine Glucose (UA) NEGATIVE NEGATIVE Urine Ketones NEGATIVE NEGATIVE Urine Nitrite NEGATIVE NEGATIVE Urine Bilirubin NEGATIVE NEGATIVE Urine Urobilinogen 1.0 < = 1.0 MG/DL Urine Leukocyte Esterase NEGATIVE NEGATIVE Urine RBC (Auto) 1+ H NEGATIVE Urine RBC RARE /HPF Urine WBC 2-5 /HPF Urine Squamous Epithelial Cells 2-5 /HPF Urine Crystals NONE /LPF Urine Bacteria TRACE /HPF Urine Casts NONE /LPF Urine Mucus NEGATIVE /LPF Urine Culture Indicated NO Urine Test NEGATIVE NEGATIVE White Blood Count 7.9 4.3-11.0 10^3/uL Red Blood Count 5.15 4.35-5.85 10^6/uL Hemoglobin 13.9 11.5-16.0 G/DL Hematocrit 41 35-52 % Mean Corpuscular Volume 80 80-99 FL Mean Corpuscular Hemoglobin 27 25-34 PG Mean Corpuscular Hemoglobin Concent 34 32-36 G/DL Red Cell Distribution Width 13.7 10.0-14.5 % Platelet Count 363 130-400 10^3/uL Mean Platelet Volume 9.8 7.4-10.4 FL Neutrophils (%) (Auto) 65 42-75 % Lymphocytes (%) (Auto) 25 12-44 % Monocytes (%) (Auto) 7 0-12 % Eosinophils (%) (Auto) 3 0-10 % Basophils (%) (Auto) 1 0-10 % Neutrophils # (Auto) 5.1 1.8-7.8 X 10^3 Lymphocytes # (Auto) 2.0 1.0-4.0 X 10^3 Monocytes # (Auto) 0.6 0.0-1.0 X 10^3 Eosinophils # (Auto) 0.2 0.0-0.3 10^3/uL Basophils # (Auto) 0.1 0.0-0.1 10^3/uL Sodium Level 139 135-145 MMOL/L Potassium Level 3.9 3.6-5.0 MMOL/L Chloride Level 105 98-107 MMOL/L Carbon Dioxide Level 28 21-32 MMOL/L Anion Gap 6 5-14 MMOL/L Blood Urea Nitrogen 9 7-18 MG/DL Creatinine 0.90 0.60-1.30 MG/DL Estimat Glomerular Filtration Rate > 60 BUN/Creatinine Ratio 10 Glucose Level 86 70-105 MG/DL Calcium Level 9.4 8.5-10.1 MG/DL Corrected Calcium 9.2 8.5-10.1 MG/DL Total Bilirubin 0.4 0.1-1.0 MG/DL Aspartate Amino Transf (AST/SGOT) 13 5-34 U/L Alanine Aminotransferase (ALT/SGPT) 13 0-55 U/L Alkaline Phosphatase 91 40-136 U/L Total Protein 7.6 6.4-8.2 GM/DL Albumin 4.3 3.2-4.5 GM/DL Amylase Level 74 25-125 U/L Lipase 30 8-78 U/L My Orders Orders - DOREEN CARRASQUILLO Ua Culture If Indicated (11/14/19 16:05) Comprehensive Metabolic Panel (11/14/19 17:39) Lipase (11/14/19 17:39) Amylase (11/14/19 17:39) Ed Iv/Invasive Line Start (11/14/19 17:39) Cbc With Automated Diff (11/14/19 17:39) Hcg,Qualitative Urine (11/14/19 17:39) Ct Abd/Pelvis Wo(Kidney Stone) (11/14/19 18:06) Abdomen/Kub 1view (11/14/19 18:06) Fentanyl Injection (Sublimaze Injection (11/14/19 19:00) Medications Given in ED Current Medications Medications Dose Ordered Sig/James Route Start Time Stop Time Status Last Admin Dose Admin Fentanyl Citrate 25 mcg ONCE ONCE IVP 11/14/19 19:00 11/14/19 19:01 DC 11/14/19 19:26 25 MCG Vital Signs/I&O 11/14/19 17:18 Temp 36.0 Pulse 83 Resp 16 B/P (MAP) 144/117 (126) Pulse Ox 100 Blood Pressure Mean: 126 Departure Impression Primary Impression: Calculus of kidney Disposition: 01 HOME, SELF-CARE Condition: Stable/Unchanged Departure-Patient Inst. Decision time for Depature: 19:27 Referrals: [facility] (PC[facility]) Primary Care Physician SHERMAN CHAVEZ APRN (Family) Primary Care Physician Patient Instructions: Kidney Stones (DC) Add. Discharge Instructions: Take medications as directed. You may use ibuprofen and Tylenol as needed for pain relief. Follow-up with your primary care provider within 1 week for recheck. Return back to the emergency room for worsening symptoms or concerns as needed. All discharge instructions reviewed with patient and/or family. Voiced understanding. Scripts Sulfamethoxazole/Trimethoprim (Bactrim Ds Tablet) 1 Each Tablet 1 EACH PO BID for 7 Days, #14 TAB Prov: DOREEN CARRASQUILLO 11/14/19 DOREEN CARRASQUILLO Nov 14, 2019 19:29
[2019-11-14 20:01] VITALS: BP 116/92
== END 2019-11-14 19:57 | disposition home or self-care (01) ==
LOC: EDUNIT# 16:04 → ER 16:05
DX: N20.0 Calculus of kidney (principal)
CPT/HCPCS: 36415; 74018; 74176; 80053; 81000; 82150; 83690; 84703; 85025

== ENCOUNTER 2020-01-20 20:03 | Emergency (ER) | payer OTHER ==
[~2020-01-20] VITALS: Ht 160 cm; Wt 66.6 kg
[~2020-01-20 20:03] MED LIST changes: +SULF1TAB35 PO
[2020-01-20 20:38] VITALS: BP 127/89
[2020-01-20] MEDS ORDERED: diphenhydrAMINE 25 MG TAB (BENADRYL) PO ONE (20:45)
[2020-01-20] MEDS ORDERED: CEPHALEXIN 250 MG (KEFLEX) CAP PO ONE (20:45)
[2020-01-20] MEDS ORDERED: CEPH-507 PO (20:48)
--- NOTE | 2020-01-20 20:48 | ED Integumentary General ---
General Stated Complaint: L ARM PAIN/BITE Source: patient Exam Limitations: no limitations History of Present Illness Date Seen by Provider: Jan 20, 2020 Time Seen by Provider: 20:44 Initial Comments To ER with reports of a bite to the posterior left elbow that began yesterday as well as a similar-appearing lesion to the anterior left lower leg that began today. These are painful and itchy. Timing/Duration: yesterday Severity: moderate Associated Symptoms: denies symptoms Allergies and Home Medications Allergies Coded Allergies: No Known Drug Allergies (Unverified , 08/12/18) Home Medications Cephalexin 500 Mg Capsule, 500 MG PO Q8H Prescribed by: GLADYS DOUGLAS on 08/12/18 1501 Diphenoxylate HCl/Atropine 1 Each Tablet, 1 EACH PO Q6H PRN for DIARRHEA Prescribed by: SIDNEY DOOLEY on 06/01/19 1646 Hydrocodone/Acetaminophen 1 Each Tablet, 1 TAB PO Q6H PRN for PAIN-MODERATE Prescribed by: GLADYS DOUGLAS on 08/12/18 1501 Omeprazole 20 Mg Capsule.dr, 20 MG PO DAILY, (Reported) Ondansetron 4 Mg Tab.rapdis, 4 MG PO Q6H Prescribed by: GLADYS DOUGLAS on 08/12/18 1501 Ondansetron 4 Mg Tab.rapdis, 4 MG PO Q6H PRN for NAUSEA/VOMITING-1ST LINE Prescribed by: SIDNEY DOOLEY on 06/01/19 1645 Sucralfate 1 Gm Tablet, 1 GM PO AC, (Reported) Sulfamethoxazole/Trimethoprim 1 Each Tablet, 1 EACH PO BID Prescribed by: DOREEN CARRASQUILLO on 11/14/19 1929 Tamsulosin HCl 0.4 Mg Cap, 0.4 MG PO DAILY Prescribed by: GLADYS DOUGLAS on 08/12/18 1501 Patient Home Medication List Home Medication List Reviewed: Yes Review of Systems Review of Systems Constitutional: see HPI EENTM: see HPI Respiratory: no symptoms reported Cardiovascular: no symptoms reported Musculoskeletal: no symptoms reported Skin: see HPI Psychiatric/Neurological: No Symptoms Reported Past Aqvfbvk-Yloerx-Nkfzra Hx Patient Social History 2nd Hand Smoke Exposure: No Recent Foreign Travel: No Contact w/Someone Who Travel: No Recent Hopitalizations: No Seasonal Allergies Seasonal Allergies: No Past Medical History Surgeries: Yes Gallbladder Respiratory: No Cardiac: No Neurological: No Genitourinary: Yes ("bladder stones") Gastrointestinal: Yes Ulcer Musculoskeletal: No Endocrine: Yes (PKU) HEENT: No Cancer: No Psychosocial: No Integumentary: No Physical Exam Vital Signs Capillary Refill : General Appearance: WD/WN, no apparent distress Neck: non-tender, full range of motion Respiratory: no respiratory distress, no accessory muscle use Neurologic/Psychiatric: alert, normal mood/affect, oriented x 3 Skin: normal color, warm/dry Skin Problem Location: upper extremities, lower extremities Skin Problem Character: other (to the posterior left distal upper arm there is a silver dollar sized area well-demarcated of erythema and firmness. Appears to be fairly shallow however. No pustules or draining lesion. Similar-appearing lesion to the anterior aspect of the left lower leg.) Progress/Results/Core Measures Results/Orders My Orders Orders - CLINTON DONALD APRN Diphenhydramine Tablet (Benadryl Tablet) (01/20/20 20:45) Cephalexin Capsule (Keflex Capsule) (01/20/20 20:45) Dexamethasone Injection (Decadron Inje (01/20/20 20:45) Departure Communication (Admissions) Differential includes localized allergic reaction from insect bite versus soft tissue infection. Impression Primary Impression: localized allergic reaction Disposition: 01 HOME, SELF-CARE Condition: Stable Departure-Patient Inst. Decision time for Depature: 20:47 Referrals: [facility]/ (PCP) Primary Care Physician SHERMAN CHAVEZ APRN (Family) Primary Care Physician Patient Instructions: NO INSTRUCTIONS GIVEN Add. Discharge Instructions: 1. Continue to take Benadryl one tablet every 4-6 hours as needed for itching. Cool compresses to the area. Antibiotics as directed. Scripts Cephalexin (Keflex) 500 Mg Capsule 500 MG PO TID, #21 CAP Prov: CLINTON DONALD APRN 01/20/20 CLINTON DONALD APRN Jan 20, 2020 20:48
== END 2020-01-20 20:58 | disposition home or self-care (01) ==
LOC: EDUNIT# 20:03 → ER 20:05
DX: T78.49XA Other allergy, initial encounter (principal)
CPT/HCPCS: 99284

== ENCOUNTER 2020-02-05 16:59 | Emergency (ER) | payer OTHER ==
[~2020-02-05] VITALS: Ht 134.6 cm; Wt 108.0 kg
--- NOTE | 2020-02-05 17:44 | ED General ---
General Stated Complaint: CHEST PAIN;LOSS OF TASTE;HEADACHE;COVID EXPOSURE Source of Information: Patient Exam Limitations: No Limitations History of Present Illness Date Seen by Provider: Feb 05, 2020 Time Seen by Provider: 17:42 Initial Comments To ER with c/o dyspnea, headache, loss of taste, COVID exposure. Timing/Duration: 1-2 Days Severity: Moderate Associated Systoms: Nausea/Vomiting Allergies and Home Medications Allergies Coded Allergies: No Known Drug Allergies (Unverified , 08/12/18) Home Medications Cephalexin 500 Mg Capsule, 500 MG PO Q8H Prescribed by: GLADYS DOUGLAS on 08/12/18 1501 Cephalexin 500 Mg Capsule, 500 MG PO TID Prescribed by: CLINTON DONALD on 01/20/20 2048 Diphenoxylate HCl/Atropine 1 Each Tablet, 1 EACH PO Q6H PRN for DIARRHEA Prescribed by: SIDNEY DOOLEY on 06/01/19 1646 Hydrocodone/Acetaminophen 1 Each Tablet, 1 TAB PO Q6H PRN for PAIN-MODERATE Prescribed by: GLADYS DOUGLAS on 08/12/18 1501 Omeprazole 20 Mg Capsule.dr, 20 MG PO DAILY, (Reported) Ondansetron 4 Mg Tab.rapdis, 4 MG PO Q6H Prescribed by: GLADYS DOUGLAS on 08/12/18 1501 Ondansetron 4 Mg Tab.rapdis, 4 MG PO Q6H PRN for NAUSEA/VOMITING-1ST LINE Prescribed by: SIDNEY DOOLEY on 06/01/19 1645 Sucralfate 1 Gm Tablet, 1 GM PO AC, (Reported) Sulfamethoxazole/Trimethoprim 1 Each Tablet, 1 EACH PO BID Prescribed by: DOREEN CARRASQUILLO on 11/14/19 1929 Tamsulosin HCl 0.4 Mg Cap, 0.4 MG PO DAILY Prescribed by: GLADYS DOUGLAS on 08/12/18 1501 Patient Home Medication List Home Medication List Reviewed: Yes Review of Systems Review of Systems Constitutional: see HPI, weakness EENTM: see HPI Respiratory: see HPI, cough, dyspnea on exertion Cardiovascular: no symptoms reported Genitourinary: no symptoms reported Musculoskeletal: no symptoms reported Skin: no symptoms reported Psychiatric/Neurological: No Symptoms Reported Past Qzhsyeb-Munufn-Ubbexs Hx Patient Social History 2nd Hand Smoke Exposure: No Recent Hopitalizations: No Seasonal Allergies Seasonal Allergies: No Past Medical History Surgeries: Yes Gallbladder Respiratory: No Cardiac: No Neurological: No Genitourinary: Yes ("bladder stones") Gastrointestinal: Yes Ulcer Musculoskeletal: No Endocrine: Yes (PKU) HEENT: No Cancer: No Psychosocial: No Integumentary: No Physical Exam Vital Signs Vital Signs - First Documented 02/05/20 17:23 Temp 37.1 Pulse 100 Pulse Ox 99 O2 Delivery Room Air Capillary Refill : Height, Weight, BMI Height: 5'3.00" Weight: 240lbs. oz. 108.681199mb; 26.00 BMI Method:Stated General Appearance: No Apparent Distress, WD/WN, Obese Eyes: Bilateral Eye Normal Inspection, Bilateral Eye PERRL, Bilateral Eye EOMI Neck: Full Range of Motion, Normal Inspection Respiratory: Lungs Clear, Normal Breath Sounds, No Accessory Muscle Use, No Respiratory Distress Cardiovascular: Regular Rate, Rhythm, Normal Peripheral Pulses Gastrointestinal: Normal Bowel Sounds, Non Tender, Soft Neurologic/Psychiatric: Alert, Oriented x3 Skin: Normal Color, Warm/Dry Progress/Results/Core Measures Suspected Sepsis SIRS Temperature: Pulse: Respiratory Rate: Laboratory Tests 02/05/20 17:50: White Blood Count 8.3 Blood Pressure / Mean: Laboratory Tests 02/05/20 17:50: Creatinine 0.81, Platelet Count 358, Total Bilirubin 0.3 Results/Orders Lab Results Laboratory Tests Test 02/05/20 17:46 02/05/20 17:50 Range/Units White Blood Count 8.3 4.3-11.0 10^3/uL Red Blood Count 5.26 H 3.80-5.11 10^6/uL Hemoglobin 14.2 11.5-16.0 g/dL Hematocrit 43 35-52 % Mean Corpuscular Volume 81 80-99 fL Mean Corpuscular Hemoglobin 27 25-34 pg Mean Corpuscular Hemoglobin Concent 33 32-36 g/dL Red Cell Distribution Width 13.2 10.0-14.5 % Platelet Count 358 130-400 10^3/uL Mean Platelet Volume 9.5 9.0-12.2 fL Immature Granulocyte % (Auto) 0 % Neutrophils (%) (Auto) 67 42-75 % Lymphocytes (%) (Auto) 21 12-44 % Monocytes (%) (Auto) 9 0-12 % Eosinophils (%) (Auto) 2 0-10 % Basophils (%) (Auto) 1 0-10 % Neutrophils # (Auto) 5.5 1.8-7.8 10^3/uL Lymphocytes # (Auto) 1.8 1.0-4.0 10^3/uL Monocytes # (Auto) 0.8 0.0-1.0 10^3/uL Eosinophils # (Auto) 0.2 0.0-0.3 10^3/uL Basophils # (Auto) 0.0 0.0-0.1 10^3/uL Immature Granulocyte # (Auto) 0.0 0.0-0.1 10^3/uL D-Dimer <= 0.27 0.00-0.49 UG/ML Sodium Level 140 135-145 MMOL/L Potassium Level 3.5 L 3.6-5.0 MMOL/L Chloride Level 107 98-107 MMOL/L Carbon Dioxide Level 22 21-32 MMOL/L Anion Gap 11 5-14 MMOL/L Blood Urea Nitrogen 9 7-18 MG/DL Creatinine 0.81 0.60-1.30 MG/DL Estimat Glomerular Filtration Rate > 60 BUN/Creatinine Ratio 11 Glucose Level 99 70-105 MG/DL Calcium Level 8.6 8.5-10.1 MG/DL Corrected Calcium 8.4 L 8.5-10.1 MG/DL Total Bilirubin 0.3 0.1-1.0 MG/DL Aspartate Amino Transf (AST/SGOT) 13 5-34 U/L Alanine Aminotransferase (ALT/SGPT) 14 0-55 U/L Alkaline Phosphatase 93 40-136 U/L C-Reactive Protein High Sensitivity 1.19 H 0.00-0.50 MG/DL Total Protein 7.5 6.4-8.2 GM/DL Albumin 4.3 3.2-4.5 GM/DL Serum Test, Qualitative NEGATIVE NEGATIVE My Orders Orders - CLINTON DONALD APRN Ekg Tracing (02/05/20 17:07) Cbc With Automated Diff (02/05/20 17:07) Comprehensive Metabolic Panel (02/05/20 17:07) Hs C Reactive Protein (02/05/20 17:07) Fibrin Degradation Products (02/05/20 17:07) Chest 1 View, Ap/Pa Only (02/05/20 17:07) Coronavirus Sars-Cov-2 So 2018 (02/05/20 17:07) Hcg,Qualitative Serum (02/05/20 17:07) Vital Signs/I&O 02/05/20 17:23 Temp 37.1 Pulse 100 B/P (MAP) Pulse Ox 99 O2 Delivery Room Air Capillary Refill : Departure Impression Primary Impression: Viral syndrome Disposition: HOME, SELF-CARE Condition: Stable Departure-Patient Inst. Decision time for Depature: 18:36 Referrals: [facility] (PCP) Primary Care Physician SHERMAN CHAVEZ APRN (Family) Primary Care Physician Patient Instructions: Viral Syndrome (DC) Add. Discharge Instructions: 1. Tylenol and ibuprofen for fever control 2. Follow-up with your doctor next week. Stay home and quarantined until the Covid result come back Work/School Note: Work Release Form Date Seen in the Emergency Department: Feb 05, 2020 Return to Work: Feb 05, 2020 Restrictions: No Sports-Until Released CLINTON DONALD APRN Feb 05, 2020 17:44
[2020-02-05 18:02] LABS: BASOPHILS % (AUTO) 1 % (0-10); EOSINOPHILS # (AUTO) 0.2 10^3/uL (0.0-0.3); EOSINOPHILS % (AUTO) 2 % (0-10); HEMATOCRIT 43 % (35-52); HEMOGLOBIN 14.2 g/dL (11.5-16.0); LYMPHOCYTES # (AUTO) 1.8 10^3/uL (1.0-4.0); LYMPHOCYTES % (AUTO) 21 % (12-44); MEAN CORPUSCULAR HEMOGLOBIN 27 pg (25-34); MEAN CORPUSCULAR HGB CONC 33 g/dL (32-36); MEAN CORPUSCULAR VOLUME 81 fL (80-99); MEAN PLATELET VOLUME 9.5 fL (9.0-12.2); MONOCYTES # (AUTO) 0.8 10^3/uL (0.0-1.0); MONOCYTES % (AUTO) 9 % (0-12); NEUTROPHILS # (AUTO) 5.5 10^3/uL (1.8-7.8); NEUTROPHILS % (AUTO) 67 % (42-75); PLATELET COUNT 358 10^3/uL (130-400); WHITE BLOOD COUNT 8.3 10^3/uL (4.3-11.0)
[2020-02-05 18:12] LABS: ALBUMIN 4.3 GM/DL (3.2-4.5); CHLORIDE 107 MMOL/L (98-107); POTASSIUM 3.5 MMOL/L (3.6-5.0); SODIUM 140 MMOL/L (135-145)
[2020-02-05 18:13] LABS: CALCIUM 8.6 MG/DL (8.5-10.1)
[2020-02-05 18:14] LABS: GLUCOSE 99 MG/DL (70-105); TOTAL PROTEIN 7.5 GM/DL (6.4-8.2)
[2020-02-05 18:15] LABS: CARBON DIOXIDE 22 MMOL/L (21-32)
[2020-02-05 18:16] LABS: BILIRUBIN,TOTAL 0.3 MG/DL (0.1-1.0)
[2020-02-05 18:18] LABS: ALKALINE PHOSPHATASE 93 U/L (40-136); CREATININE SERUM 0.81 MG/DL (0.60-1.30); GFR ESTIMATED > 60
[2020-02-05 18:19] LABS: BUN/CREATININE RATIO 11
[2020-02-05 18:21] LABS: ALANINE AMINOTRANSFERASE 14 U/L (0-55)
--- NOTE | 2020-02-05 18:37 | Diagnostic Imaging Report ---
INDICATION: chest pain. Covid symptoms after exposure one week ago. TECHNIQUE: Single view chest 6:24 PM. CORRELATION STUDY: None FINDINGS: The heart size, mediastinal configuration and pulmonary vascularity are within normal limits. The lungs are clear with no consolidating infiltrate. There is no significant effusion or pneumothorax. IMPRESSION: 1. Negative for acute abnormality of the chest. Dictated by: Dictated on workstation # [id number]
[2020-02-05 18:47] VITALS: BP 148/90
== END 2020-02-05 18:47 | disposition home or self-care (01) ==
LOC: EDUNIT# 16:59 → ER 17:01
DX: B34.9 Viral infection, unspecified (principal); E66.9 Obesity, unspecified; Z20.828 Contact with and (suspected) exposure to other viral communicable diseases; Z68.26 Body mass index [BMI] 26.0-26.9, adult
CPT/HCPCS: 71045; 80053; 84703; 85025; 85379; 86141; 99284; U0002; 36415; 87635

== ENCOUNTER 2020-10-20 21:17 | Emergency (ER) | payer OTHER ==
[~2020-10-20 21:17] MED LIST changes: -SULF1TAB35 PO; +SULF1TAB38 PO
== END 2020-10-20 21:28 | disposition left against medical advice (07) ==
LOC: EDUNIT# 21:17 → ER 21:18
DX: Z20.822 Contact with and (suspected) exposure to COVID-19 (principal)

== ENCOUNTER 2020-12-27 08:00 | Outpatient (RCR) | payer OTHER | END 2021-01-16 13:38 | disposition home or self-care (01) | PROVIDERS: ATTEND Physician Assistant Medical | DX: G89.29 Other chronic pain (principal); M25.562 Pain in left knee; M22.2X2 Patellofemoral disorders, left knee; R26.9 Unspecified abnormalities of gait and mobility; M19.90 Unspecified osteoarthritis, unspecified site; F32.9 Major depressive disorder, single episode, unspecified ==

== ENCOUNTER → 2021-02-07 | Outpatient (CLI) | payer OTHER | LOC: LAB 09:01 | PROVIDERS: ATTEND Pathology Clinical Pathology/Laboratory Medicine | DX: E70.0 Classical phenylketonuria (principal) | CPT/HCPCS: 36415 ==

== ENCOUNTER 2021-06-02 03:45 | Emergency (ER) | payer OTHER ==
[2021-06-02] MEDS ORDERED: KETOROLAC 60 MG/2 ML VIAL IM STA (04:15)
--- NOTE | 2021-06-02 04:29 | ED Cough/URI ---
General Chief Complaint: Cough/Cold/Flu Symptoms Stated Complaint: L&R EAR PAIN;N/V;COUGH Source: patient Exam Limitations: no limitations History of Present Illness Date Seen by Provider: Jun 02, 2021 Time Seen by Provider: 04:09 Initial Comments Here with 1 week of sore throat, runny nose, cough, ear fullness and now with lymphadenopathy bilateral. She has had some nausea and vomiting with cough. She is trying cough medicine and that is not helping. She took Tylenol about 5 hours ago and that is not helping. She has recently had Covid as well as Covid vaccination. She has not been vaccinated for influenza. Timing/Duration: week, getting worse Severity/Quality: dry cough Prior Episodes/Possible Cause: occasional episodes Associated Symptoms: cough, earache (Bilateral), fever/chills, nasal congestion, nasal drainage, sore throat Allergies and Home Medications Allergies Coded Allergies: No Known Drug Allergies (Unverified , 08/12/18) Patient Home Medication List Home Medication List Reviewed: Yes Cephalexin (Keflex) 500 Mg Capsule, 500 MG PO Q8H Prescribed by: GLADYS DOUGLAS on 08/12/18 1501 Cephalexin (Keflex) 500 Mg Capsule, 500 MG PO TID Prescribed by: CLINTON DONALD on 01/20/20 2048 Diphenoxylate HCl/Atropine (Lomotil 2.5-0.025 mg Tablet) 1 Each Tablet, 1 EACH PO Q6H PRN for DIARRHEA Prescribed by: SIDNEY DOOLEY on 06/01/19 1646 Hydrocodone/Acetaminophen ([place] 10-325 Tablet) 1 Each Tablet, 1 TAB PO Q6H PRN for PAIN-MODERATE Prescribed by: GLADYS DOUGLAS on 08/12/18 1501 Omeprazole (Omeprazole) 20 Mg Capsule.dr, 20 MG PO DAILY, (Reported) Entered as Reported by: VANI WINTERS on 06/02/19 1526 Ondansetron (Ondansetron Odt) 4 Mg Tab.rapdis, 4 MG PO Q6H Prescribed by: GLADYS DOUGLAS on 08/12/18 1501 Ondansetron (Ondansetron Odt) 4 Mg Tab.rapdis, 4 MG PO Q6H PRN for NAUSEA/VOMITING-1ST LINE Prescribed by: SIDNEY DOOLEY on 06/01/19 1645 Sucralfate (Carafate) 1 Gm Tablet, 1 GM PO AC, (Reported) Entered as Reported by: VANI WINTERS on 06/02/19 1526 Sulfamethoxazole/Trimethoprim (Bactrim Ds Tablet) 1 Each Tablet, 1 EACH PO BID Prescribed by: DOREEN CARRASQUILLO on 11/14/19 1929 Tamsulosin HCl (Flomax) 0.4 Mg Cap, 0.4 MG PO DAILY Prescribed by: GLADYS DOUGLAS on 08/12/18 1501 Review of Systems Review of Systems Constitutional: No chills; fever EENTM: see HPI Respiratory: see HPI Cardiovascular: No chest pain, No edema Gastrointestinal: No abdominal pain; nausea, vomiting Musculoskeletal: no symptoms reported Skin: no symptoms reported Past Vsuzfnz-Bkrqdh-Yhflox Hx Patient Social History Tobacco Use?: No Substance use?: No Alcohol Use?: Yes Alcohol Frequency: Once in a while Immunizations Up To Date Tetanus Booster (TDap): Less than 5yrs Influenza Vaccine Up-to-Date: No; Not Current COVID19 Vaccine Cured 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 oz. 108.690460vj; 59.00 BMI Method:Stated General Appearance: WD/WN, mild distress HEENT: PERRL/EOMI, TM abnormal (R), TM abnormal (L), other (Bilateral TMs bulging without opacity. Moderate nasal congestion. Moderate pharyngeal erythema without significant tonsillar swelling or exudate. Uvula seems inflamed.) Neck: full range of motion, supple, lymphadenopathy (R), lymphadenopathy (L) Respiratory: lungs clear, normal breath sounds Cardiovascular: regular rate, rhythm, no murmur Gastrointestinal: non tender, soft Neurologic/Psychiatric: alert, oriented x 3 Skin: normal color, warm/dry Progress/Results/Core Measures Suspected Sepsis SIRS Temperature: Pulse: Respiratory Rate: Blood Pressure / Mean: Results/Orders Lab Results Laboratory Tests Test 06/02/21 04:10 Range/Units Influenza Type A Antigen NEGATIVE NEGATIVE Influenza Type B Antigen NEGATIVE NEGATIVE My Orders Orders - BILLY DANIELSON MD Dexamethasone Injection (Decadron Inje (06/02/21 04:15) Ketorolac Injection (Toradol Injection) (06/02/21 04:15) Influenza A & B Antigens (06/02/21 04:10) Medications Given in ED Current Medications Medications Dose Ordered Sig/James Route Start Time Stop Time Status Last Admin Dose Admin Dexamethasone Sodium Phosphate 10 mg ONCE ONCE IM 06/02/21 04:15 06/02/21 04:17 DC 06/02/21 04:42 10 MG Vital Signs/I&O 06/02/21 06/02/21 04:05 04:05 Temp 36.0 Pulse 80 Resp 16 B/P (MAP) 155/100 (118) Pulse Ox 100 O2 Delivery Room Air Room Air Capillary Refill : Progress Note : Progress Note Seen and evaluated. We will check for influenza. Toradol 60 mg IM and Decadron 10 mg IM ordered. Monitor patient. 0505: Overall doing a little better. Influenza negative. Discharged home with return precautions. Patient verbalized understanding of instructions and agreement with plan. Departure Impression Primary Impression: Viral syndrome Disposition: HOME, SELF-CARE Condition: Stable Departure-Patient Inst. Decision time for Depature: 05:05 Referrals: CHAVEZ HOPKINS APRN (PCP/Family) Primary Care Physician Patient Instructions: Viral Upper Respiratory Infection, Adult (DC) Add. Discharge Instructions: All discharge instructions reviewed with patient and/or family. Voiced understanding. You may take Tylenol/acetaminophen 1000 mg every 8 hours as needed for fever or pain. Make sure the cough medicine you are taking does not have acetaminophen in it. Do not take both at the same time. You may take ibuprofen 600 mg every 8 hours as needed for fever or pain. You may use Afrin nasal spray or the generic, 12 hour relief, 2 sprays to each nostril twice daily for 3 days only and then stop. Do not use more than 3 days. Follow-up with your DrMary in a few days for recheck. Drink plenty of fluids. Return for worse pain, fever, vomiting, weakness, breathing problems or other concerns as needed. BILLY DANIELSON MD Jun 02, 2021 04:29
[2021-06-02 05:19] VITALS: BP 142/98
== END 2021-06-02 05:19 | disposition home or self-care (01) ==
LOC: EDUNIT# 03:45 → ER 03:48
DX: B34.9 Viral infection, unspecified (principal); Z86.16 Personal history of COVID-19
CPT/HCPCS: 87804